=== PATIENT | male | born 1960 | race Caucasian/White ===

== ENCOUNTER 2017-04-03 10:20 | Observation (INO) | payer OTHER ==
--- NOTE | 2017-04-03 11:40 | ED ---
General Adult HPI - General Source: patient Mode of arrival: EMS Limitations: no limitations <Andreea Sahni - Last Filed: 04/03/17 13:47> <Riccardo Severino - Last Filed: 04/03/17 14:57> - General Chief complaint: GI Bleed Stated complaint: Rectal Bleeding Time Seen by Provider: 04/03/17 11:03 - History of Present Illness Initial comments: 56-year-old male patient with past medical history significant for diabetes, CVA with right-sided deficits, and COPD presents to emergency department today for a 10 day history of rectal pain and bright red rectal bleeding. Patient states that he would occasionally have bleeding even without bowel movements. Patient is concerned that he has a hemorrhoid. Patient states that occasionally the blood would fill the entire toilet bowl. Patient states the pain feels like it is on the inside up near his scrotum. Patient states that occasionally he would have drainage of clear fluid from the rectum that would soak his pants. Patient reports having hard bowel movements once every 4 days. He does use opiates chronically. Patient denies any recent fever, chills, shortness breath, chest pain, abdominal pain, nausea/vomiting/diarrhea, back pain, new numbness, tingling, hematuria, headache, visual changes, or any other complaints. Patient denies any family history of cancers. States he does currently smoke and has a history of alcohol abuse currently in remission for 9 years. (Andreea Sahni) - Related Data Home Medications Medication Instructions Recorded Confirmed Aspirin 81 mg PO HS 04/03/17 04/03/17 Furosemide [Lasix] 40 mg PO DAILY 04/03/17 04/03/17 Pregabalin [Lyrica] 150 mg PO BID 04/03/17 04/03/17 Sertraline HCl [Zoloft] 100 mg PO HS 04/03/17 04/03/17 Simvastatin [Zocor] 40 mg PO HS 04/03/17 04/03/17 fentaNYL 100MCG/HR PATCH 1 patch TRANSDERM Q48H 04/03/17 04/03/17 [Duragesic 100MCG/HR] metFORMIN HCL [Glucophage] 500 mg PO BID 04/03/17 04/03/17 Allergies Allergy/AdvReac Type Severity Reaction Status Date / Time No Known Allergies Allergy Unverified 04/03/17 10:41 Review of Systems ROS Other: All systems not noted in ROS Statement are negative. <Bharat Sahniakdi Giraldo - Last Filed: 04/03/17 13:47> ROS Other: All systems not noted in ROS Statement are negative. <Riccardo Severino - Last Filed: 04/03/17 14:57> ROS Statement: Those systems with pertinent positive or pertinent negative responses have been documented in the HPI. Past Medical History Past Medical History: COPD, CVA/TIA, Diabetes Mellitus, Hyperlipidemia, Hypertension History of Any Multi-Drug Resistant Organisms: None Reported Past Surgical History: No Surgical Hx Reported Past Psychological History: No Psychological Hx Reported Smoking Status: Current every day smoker Past Alcohol Use History: None Reported Past Drug Use History: None Reported <FaviolaBharat odellina Enzo - Last Filed: 04/03/17 13:47> General Exam Limitations: no limitations General appearance: alert, in no apparent distress, obese Eye exam: Present: normal appearance, PERRL, EOMI. Absent: scleral icterus, conjunctival injection, periorbital swelling ENT exam: Present: normal exam, normal oropharynx, mucous membranes moist Neck exam: Present: normal inspection. Absent: tenderness, meningismus, lymphadenopathy Respiratory exam: Present: rhonchi. Absent: normal lung sounds bilaterally ( Throughout), respiratory distress, wheezes, rales, stridor Cardiovascular Exam: Present: regular rate, normal rhythm, normal heart sounds. Absent: systolic murmur, diastolic murmur, rubs, gallop, clicks GI/Abdominal exam: Present: soft, normal bowel sounds. Absent: distended, tenderness, guarding, rebound, rigid Rectal exam: Present: normal inspection, normal rectal tone, heme (-) stool, tenderness (Tenderness perianally, rectal tenderness). Absent: hemorrhoids, mass Extremities exam: Present: normal capillary refill, other (Bilateral lower legs exhibit brownish skin discoloration, thickening, and changes due to venous insufficiency.). Absent: normal inspection, full ROM (Patient has right-sided paralysis from previous stroke), tenderness, pedal edema, joint swelling, calf tenderness Back exam: Present: normal inspection Neurological exam: Present: alert, oriented X3, CN II-XII intact, other ( Patient reports some memory impairment.) Psychiatric exam: Present: normal affect, normal mood Skin exam: Present: warm, dry, intact, normal color. Absent: rash <Andreea Sahni - Last Filed: 04/03/17 13:47> General appearance: alert, in no apparent distress Head exam: Present: atraumatic, normocephalic, normal inspection Eye exam: Present: normal appearance, PERRL, EOMI. Absent: scleral icterus, conjunctival injection, periorbital swelling ENT exam: Present: normal exam, mucous membranes moist Neck exam: Present: normal inspection. Absent: tenderness, meningismus, lymphadenopathy Respiratory exam: Present: normal lung sounds bilaterally. Absent: respiratory distress, wheezes, rales, rhonchi, stridor Cardiovascular Exam: Present: regular rate, normal rhythm, normal heart sounds. Absent: systolic murmur, diastolic murmur, rubs, gallop, clicks GI/Abdominal exam: Present: soft, normal bowel sounds. Absent: distended, tenderness, guarding, rebound, rigid Extremities exam: Present: normal inspection, full ROM, normal capillary refill. Absent: tenderness, pedal edema, joint swelling, calf tenderness Back exam: Present: normal inspection Neurological exam: Present: alert, oriented X3, CN II-XII intact Psychiatric exam: Present: normal affect, normal mood Skin exam: Present: warm, dry, intact, normal color. Absent: rash <Riccardo Severino - Last Filed: 04/03/17 14:57> Course <Andreea Sahni - Last Filed: 04/03/17 13:47> <Riccardo Severino - Last Filed: 04/03/17 14:57> Vital Signs 04/03/17 04/03/17 04/03/17 10:28 12:09 13:49 Temperature 97.0 F L 97.7 F Pulse Rate 73 70 71 Respiratory 18 20 20 Rate Blood Pressure 138/61 121/70 121/68 O2 Sat by Pulse 95 93 L 94 L Oximetry - Reevaluation(s) Reevaluation #1: 04/03/17 14:57 Patient be admitted for GI evaluation regarding possibility of UC versus Crohn' s (Riccardo Severino) Medical Decision Making - Lab Data Result diagrams: 04/03/17 11:48 04/03/17 11:48 - Radiology Data Radiology results: report reviewed, image reviewed <Andreea Sahni - Last Filed: 04/03/17 13:47> - Lab Data Result diagrams: 04/03/17 11:48 04/03/17 11:48 <Riccardo Severino - Last Filed: 04/03/17 14:57> - Medical Decision Making Patient presented for complaints of rectal bleeding on and off for the last 10 days. Physical exam did reveal perianal and rectal tenderness. CT of the abdomen and pelvis was performed and did show some rectal wall thickening as well as some presacral edema. Stool was negative for occult blood. Patient will be admitted to the hospital for evaluation by gastroenterology. (Andreea Sahni) - Lab Data Lab Results 04/03/17 04/03/17 04/03/17 Range/Units 11:48 11:48 11:48 WBC 7.5 (3.8-10.6) k/uL RBC 5.35 (4.30-5.90) m/uL Hgb 15.0 (13.0-17.5) gm/dL Hct 47.1 (39.0-53.0) % MCV 88.0 (80.0-100.0) fL MCH 28.1 (25.0-35.0) pg MCHC 31.9 (31.0-37.0) g/dL RDW 17.0 H (11.5-15.5) % Plt Count 192 (150-450) k/uL Neutrophils % 78 % Lymphocytes % 12 % Monocytes % 5 % Eosinophils % 2 % Basophils % 1 % Neutrophils # 5.9 (1.3-7.7) k/uL Lymphocytes # 0.9 L (1.0-4.8) k/uL Monocytes # 0.4 (0-1.0) k/uL Eosinophils # 0.1 (0-0.7) k/uL Basophils # 0.1 (0-0.2) k/uL Anisocytosis Slight Sodium 141 (137-145) mmol/L Potassium 4.8 (3.5-5.1) mmol/L Chloride 105 (98-107) mmol/L Carbon Dioxide 31 H (22-30) mmol/L Anion Gap 5 mmol/L BUN 22 H (9-20) mg/dL Creatinine 0.82 (0.66-1.25) mg/dL Est GFR (MDRD) Af Amer >60 (>60 ml/min/1.73 sqM) Est GFR (MDRD) Non-Af >60 (>60 ml/min/1.73 sqM) Glucose 95 (74-99) mg/dL Plasma Lactic Acid Hebert 0.8 (0.7-2.0) mmol/L Calcium 8.5 (8.4-10.2) mg/dL Total Bilirubin 0.6 (0.2-1.3) mg/dL AST 19 (17-59) U/L ALT 34 (21-72) U/L Alkaline Phosphatase 71 (38-126) U/L Total Protein 6.9 (6.3-8.2) g/dL Albumin 3.6 (3.5-5.0) g/dL Amylase 81 (30-110) U/L Lipase 416 H (23-300) U/L Urine Color Urine Appearance (Clear) Urine pH (5.0-8.0) Ur Specific Dighton (1.001-1.035) Urine Protein (Negative) Urine Glucose (UA) (Negative) Urine Ketones (Negative) Urine Blood (Negative) Urine Nitrite (Negative) Urine Bilirubin (Negative) Urine Urobilinogen (<2.0) mg/dL Ur Leukocyte Esterase (Negative) Urine RBC (0-5) /hpf Urine WBC (0-5) /hpf Amorphous Sediment (None) /hpf Urine Mucus (None) /hpf Stool Occult Blood (Negative) 04/03/17 04/03/17 Range/Units 11:48 12:15 WBC (3.8-10.6) k/uL RBC (4.30-5.90) m/uL Hgb (13.0-17.5) gm/dL Hct (39.0-53.0) % MCV (80.0-100.0) fL MCH (25.0-35.0) pg MCHC (31.0-37.0) g/dL RDW (11.5-15.5) % Plt Count (150-450) k/uL Neutrophils % % Lymphocytes % % Monocytes % % Eosinophils % % Basophils % % Neutrophils # (1.3-7.7) k/uL Lymphocytes # (1.0-4.8) k/uL Monocytes # (0-1.0) k/uL Eosinophils # (0-0.7) k/uL Basophils # (0-0.2) k/uL Anisocytosis Sodium (137-145) mmol/L Potassium (3.5-5.1) mmol/L Chloride (98-107) mmol/L Carbon Dioxide (22-30) mmol/L Anion Gap mmol/L BUN (9-20) mg/dL Creatinine (0.66-1.25) mg/dL Est GFR (MDRD) Af Amer (>60 ml/min/1.73 sqM) Est GFR (MDRD) Non-Af (>60 ml/min/1.73 sqM) Glucose (74-99) mg/dL Plasma Lactic Acid Hebert (0.7-2.0) mmol/L Calcium (8.4-10.2) mg/dL Total Bilirubin (0.2-1.3) mg/dL AST (17-59) U/L ALT (21-72) U/L Alkaline Phosphatase (38-126) U/L Total Protein (6.3-8.2) g/dL Albumin (3.5-5.0) g/dL Amylase (30-110) U/L Lipase (23-300) U/L Urine Color Yellow Urine Appearance Clear (Clear) Urine pH 8.0 (5.0-8.0) Ur Specific Dighton 1.015 (1.001-1.035) Urine Protein Trace H (Negative) Urine Glucose (UA) Negative (Negative) Urine Ketones Negative (Negative) Urine Blood Moderate H (Negative) Urine Nitrite Negative (Negative) Urine Bilirubin Negative (Negative) Urine Urobilinogen <2.0 (<2.0) mg/dL Ur Leukocyte Esterase Negative (Negative) Urine RBC 71 H (0-5) /hpf Urine WBC 1 (0-5) /hpf Amorphous Sediment Rare H (None) /hpf Urine Mucus Rare H (None) /hpf Stool Occult Blood Negative (Negative) - Radiology Data CT of the abdomen and pelvis was obtained impression by Dr. Jenkins shows mild wall thickening involving the rectum and rectosigmoid junction which may be partially related to incomplete distention correlate clinically. There is also evidence of presacral soft tissue density which could be related to mild inflammatory condition. Neoplastic process felt much less likely but not excluded. Numerous renal lesions majority which are too small to characterize. Largest measures Hounsfield units compatible with simple cyst. Cholelithiasis. Nonobstructing lower pole 5 mm left renal calculus. Mild splenomegaly. (Andreea Sahni) Disposition Decision to Admit Reason: Admit from EC Decision Date: 04/03/17 Decision Time: 13:42 <Andreea Sahni - Last Filed: 04/03/17 13:47> <Riccardo Severino - Last Filed: 04/03/17 14:57> Clinical Impression: Rectal pain, GI bleed Disposition: ADMITTED IP TO THIS [facility] Condition: Fair
[2017-04-03] MEDS: RX INFO: IV CONTRAST WAS GIVEN 1 EACH MISC MISCELLANE PRN (11:45)
[2017-04-03 11:56] LABS: Anisocytosis Slight; Basophils # (A) 0.1 k/uL (0-0.2); Basophils % (A) 1 %; CH 28.5; CHCM 32.5; Eosinophils # (A) 0.1 k/uL (0-0.7); Eosinophils % (A) 2 %; HCT 47.1 % (39.0-53.0); HDW 2.83; Luc # (Auto) 0.21; Luc % (Auto) 3; Lymphocytes # (A) 0.9 k/uL (1.0-4.8); Lymphocytes % (A) 12 %; MCH 28.1 pg (25.0-35.0); MCHC 31.9 g/dL (31.0-37.0); Mean Platelet Volume 7.4; Monocytes # (A) 0.4 k/uL (0-1.0); Monocytes % (A) 5 %; Neutrophils # (A) 5.9 k/uL (1.3-7.7); Neutrophils % (A) 78 %; RBC 5.35 m/uL (4.30-5.90); WBC 7.5 k/uL (3.8-10.6); WBC (Perox) 7.24
[2017-04-03 12:06] LABS: ALT 34 U/L (21-72); AST 19 U/L (17-59); Alkaline Phosphatase 71 U/L (38-126); Amylase 81 U/L (30-110); Anion Gap 5 mmol/L; Blood Urea Nitrogen 22 mg/dL (9-20); Calcium 8.5 mg/dL (8.4-10.2); Carbon Dioxide 31 mmol/L (22-30); Chloride 105 mmol/L (98-107); Glucose 95 mg/dL (74-99); Non-African American GFR(MDRD) >60 (>60 ml/min/1.73 sqM); Potassium 4.8 mmol/L (3.5-5.1); Sodium 141 mmol/L (137-145); Total Bilirubin 0.6 mg/dL (0.2-1.3); Total Protein 6.9 g/dL (6.3-8.2)
[2017-04-03 12:29] LABS: Amorphous Sediment,Urine Rare /hpf; Appearance,Urine Clear (Clear); Bilirubin,Urine Negative (Negative); Glucose,Urine (UA) Negative (Negative); Ketones,Urine Negative (Negative); Leukocyte Esterase,Urine Negative (Negative); Mucus,Urine Rare /hpf; Nitrite,Urine Negative (Negative); Particle Count 983; Protein,Urine Trace (Negative); RBC,Urine 71 /hpf (0-5); Specific Gravity,Urine 1.015 (1.001-1.035); UA Billing (MACRO vs. MICRO) MICRO; Urobilinogen,Urine <2.0 mg/dL (<2.0); WBC,Urine 1 /hpf (0-5)
--- NOTE | 2017-04-03 13:02 | CT ---
EXAMINATION TYPE: CT abdomen pelvis w con DATE OF EXAM: 04/03/2017 COMPARISON: NONE HISTORY: Patient complains or rectal bleeding. CT DLP: 2615.1 mGycm Automated exposure control for dose reduction was used. CONTRAST: CT scan of the abdomen pelvis is performed with IV Contrast, patient injected with 100 mL of Omnipaqu e 300. FINDINGS- LUNG BASES- No significant abnormality is appreciated. LIVER/GB-tiny hypodensity within the liver is too small to characterize. There are multiple gallstone s. PANCREAS- No gross abnormality is seen. SPLEEN-the spleen is homogeneous but measures 17 cm correlate for mild splenomegaly. ADRENALS- No gr oss abnormality is seen. KIDNEYS/BLADDER- no hydronephrosis . There are numerous hypodensities some of which are too small to characterize bilaterally. The largest measures approximately 2.5 cm and measures 10 Hounsfield units compatible with a simple cyst. There is a lower pole renal calculus on the left measuring approximate ly 5 mm.. BOWEL- no bowel dilatation. Normal appendix. Occasional diverticula with no CT evidence of divertic ulitis. Rectal wall slightly thickened which may be related to decompression. Correlate clinically. LYMPH NODES- No greater than 1cm abdominal or pelvic lymph nodes are appreciated. OSSEOUS STRUCTURES-hypertrophic and degenerative change of the spine. Arthropathy of the hips. OTHER- aorta of normal caliber with atherosclerotic changes. IVC filter noted. Nonspecific presacral edema noted. IMPRESSION- 1. Mild wall thickening involving the rectum and rectosigmoid junction which may be partially related to incomplete distention correlate clinically. There also is evidence of presacral soft tissue densi ty which could be related to mild inflammatory condition. Neoplastic process felt much less likely bu t not excluded. 2. Numerous renal lesions majority which are too small to characterize. Largest measures Hounsfield u nits compatible with simple cyst. 3. Cholelithiasis. 4. nonobstructing lower pole 5 mm left renal calculus. 5. mild splenomegaly.
[2017-04-03] MEDS ORDERED: NALOXONE 0.4 MG/ML 1 ML VIAL IV PRN (13:38)
[2017-04-03 16:40] LABS: Glucose,Whole Blood 87 mg/dL (75-99)
[2017-04-03] MEDS: metFORMIN 500 MG TAB PO SCH (18:30)
[2017-04-03 20:04] LABS: Glucose,Whole Blood 122 mg/dL (75-99)
[2017-04-03] MEDS: SERTRALINE 100 MG TAB PO SCH (20:36)
[2017-04-03] MEDS: ATORVASTATIN 20 MG TAB PO SCH (20:36)
[2017-04-03] MEDS: PREGABALIN 75 MG CAP PO SCH (20:37)
--- NOTE | 2017-04-04 01:10 | P.CONS ---
History of Present Illness - Reason for Consult Consult date: 04/03/[address] bleeding and abnormal CT - History of Present Illness The patient is a 56-year-old male patient with past medical history of diabetes mellitus, CVA 9 years ago with right-sided paralysis and COPD presented to the emergency department with a 10 day history of rectal pain and bright red rectal bleeding. Patient states that he would occasionally have bleeding even without bowel movements. Patient is concerned that he has a hemorrhoid. Patient states that occasionally the blood would fill the entire toilet bowl. Patient states the pain feels like it is on the inside up near his scrotum. Patient states that occasionally he would have drainage of clear fluid from the rectum that would soak his pants. Patient reports having hard bowel movements once every 4 days. He does use opiates chronically. Patient denies any recent fever , chills, shortness breath, chest pain, abdominal pain, nausea/vomiting/diarrhea , back pain, new numbness, tingling, hematuria, headache, visual changes, or any other complaints. Patient denies any family history of cancers. States he does currently smoke and has a history of alcohol abuse currently in remission for [address] of the abdomen and pelvis showed mild thickening in the wall of the rectum and sigmoid. Review of Systems 14 point review of systems is otherwise negative except as per present illness above. Past Medical History Past Medical History: Heart Failure, COPD, CVA/TIA, Diabetes Mellitus, Hyperlipidemia, Hypertension, Memory Impairment Additional Past Medical History / Comment(s): 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 History of Any Multi-Drug Resistant Organisms: None Reported Past Surgical History: No Surgical Hx Reported Additional Past Surgical History / Comment(s): colonoscopy/benign polypectomy, [facility], failed casandra filter. Past Anesthesia/Blood Transfusion Reactions: No Reported Reaction Smoking Status: Current every day smoker - Past Family History Mother Family Medical History: COPD, Hyperlipidemia, Hypertension Additional Family Medical History / Comment(s): Mother has heart disease. She is 78yrs old. Father Family Medical History: Unable to Obtain Additional Family Medical History / Comment(s): Father at the age of 65 yrs. Pt cannot recall father's medical hx. Medications and Allergies Home Medications Medication Instructions Recorded Confirmed Type Aspirin 81 mg PO HS 04/03/17 04/03/17 History Furosemide [Lasix] 40 mg PO DAILY 04/03/17 04/03/17 History Pregabalin [Lyrica] 150 mg PO BID 04/03/17 04/03/17 History Sertraline HCl [Zoloft] 100 mg PO HS 04/03/17 04/03/17 History Simvastatin [Zocor] 40 mg PO HS 04/03/17 04/03/17 History fentaNYL 100MCG/HR PATCH 1 patch TRANSDERM Q48H 04/03/17 04/03/17 History [Duragesic 100MCG/HR] metFORMIN HCL [Glucophage] 500 mg PO BID 04/03/17 04/03/17 History Allergies Allergy/AdvReac Type Severity Reaction Status Date / Time No Known Allergies Allergy Unverified 04/03/17 10:41 Physical Exam Vitals: Vital Signs Temp Pulse Pulse Resp BP BP Pulse Ox 04/03/17 15:53 97.6 F 86 16 112/59 97 04/03/17 13:49 71 20 121/68 94 L 04/03/17 12:09 97.7 F 70 20 121/70 93 L 04/03/17 10:28 97.0 F L 73 18 138/61 95 Intake and Output 04/03/17 04/03/17 04/03/17 06:59 14:59 22:59 Other: Voiding Method Urinal Weight 145.15 kg Patient Weight 04/04/17 06:59 Weight 145.15 kg General appearance: The patient is alert, oriented, in no acute distress. HET: Head is normocephalic and atraumatic. Pupils are equal and reactive. Oropharynx is clear without lesions. Neck: Supple without lymphadenopathy. Trachea midline. Heart: S1 S2. Regular rate and rhythm. Lungs: No crackles or wheezes are heard. Abdomen: Soft, nontender, nondistended with bowel sounds. No peritoneal signs. No palpable organomegaly or masses. Extremities: Stasis changes and ecchymosis in lower extremities. No cyanosis, rash, ulceration, clubbing, or edema. Radial and pedal pulses are 2/4 bilaterally. Neurological: Right sided motor deficit related to his CVA. Results CBC & Chem 7: 04/03/17 11:48 04/03/17 11:48 Labs: Abnormal Lab Results - Last 24 Hours (Table) 04/03/17 04/03/17 04/03/17 Range/Units 11:48 11:48 12:15 RDW 17.0 H (11.5-15.5) % Lymphocytes # 0.9 L (1.0-4.8) k/uL Carbon Dioxide 31 H (22-30) mmol/L BUN 22 H (9-20) mg/dL POC Glucose (mg/dL) (75-99) mg/dL Lipase 416 H (23-300) U/L Urine Protein Trace H (Negative) Urine Blood Moderate H (Negative) Urine RBC 71 H (0-5) /hpf Amorphous Sediment Rare H (None) /hpf Urine Mucus Rare H (None) /hpf 04/03/17 Range/Units 20:03 RDW (11.5-15.5) % Lymphocytes # (1.0-4.8) k/uL Carbon Dioxide (22-30) mmol/L BUN (9-20) mg/dL POC Glucose (mg/dL) 122 H (75-99) mg/dL Lipase (23-300) U/L Urine Protein (Negative) Urine Blood (Negative) Urine RBC (0-5) /hpf Amorphous Sediment (None) /hpf Urine Mucus (None) /hpf Assessment and Plan Plan: 56-year-old male with rectal bleeding and abnormal CT showing thickened wall in the sigmoid and rectum. With his history of constipation and narcotic use the possibility that we are dealing with ischemic or self-limited colitis to be kept in mind. Local perianal pathology including fissures and hemorrhoids will be considered as well. At his age, consideration can be made for colonoscopy. I will discuss with you and follow the with interest.
[2017-04-04 07:49] LABS: Glucose,Whole Blood 94 mg/dL (75-99)
[2017-04-04] MEDS: FUROSEMIDE 40 MG TAB PO SCH (08:21)
[2017-04-04] MEDS: metFORMIN 500 MG TAB PO SCH ×2 (08:21→17:35)
[2017-04-04] MEDS: PREGABALIN 75 MG CAP PO SCH ×2 (08:24→20:06)
--- NOTE | 2017-04-04 09:55 | P.PN ---
Progress Note - Text Please see full report. Patient denies any recent blood in stools. He was seen by GI. Patient wants regular diet and discharge home.
--- NOTE | 2017-04-04 10:23 | P.PN ---
Subjective Principal diagnosis: Rectal bleeding 56-year-old gentleman with a history of CVA right-sided paralysis presents with rectal bleeding with underlying history of constipation and narcotic usage. Possible ischemic or soft limited colitis. Local. No pathology considered as well. No history of colonoscopy. Presently denies rectal bleeding. Requesting diet advancement. Denies abdominal pain. Objective - Vital Signs Vital signs: Vital Signs Temp 97.8 F 04/04/17 07:00 Pulse 75 04/04/17 08:00 Resp 18 04/04/17 07:00 BP 116/61 04/04/17 07:00 Pulse Ox 93 L 04/04/17 07:00 Intake & Output 04/03/17 04/04/17 04/04/17 18:59 06:59 18:59 Intake Total 590 Output Total 600 Balance -10 Weight 145.15 kg Intake: Oral 590 Output: Urine 600 Other: Voiding Method Urinal Urinal Urinal # Voids 2 - Exam General appearance: The patient is alert, oriented, in no acute distress. HET: Head is normocephalic and atraumatic. Pupils are equal and reactive. Oropharynx is clear without lesions. Neck: Supple without lymphadenopathy. Trachea midline. Heart: S1 S2. Regular rate and rhythm. Lungs: No crackles or wheezes are heard. Abdomen: Soft, nontender, nondistended with bowel sounds. No peritoneal signs. No palpable organomegaly or masses. Extremities: Normal skin color and turgor. No cyanosis, rash, ulceration, clubbing, or edema. Radial and pedal pulses are 2/4 bilaterally. Neurological: Right-sided paralysis. No focal deficits. Strength and sensation are grossly intact. - Labs CBC & Chem 7: 04/03/17 11:48 04/03/17 11:48 Labs: Abnormal Lab Results - Last 24 Hours (Table) 04/03/17 04/03/17 04/03/17 Range/Units 11:48 11:48 12:15 RDW 17.0 H (11.5-15.5) % Lymphocytes # 0.9 L (1.0-4.8) k/uL Carbon Dioxide 31 H (22-30) mmol/L BUN 22 H (9-20) mg/dL POC Glucose (mg/dL) (75-99) mg/dL Lipase 416 H (23-300) U/L Urine Protein Trace H (Negative) Urine Blood Moderate H (Negative) Urine RBC 71 H (0-5) /hpf Amorphous Sediment Rare H (None) /hpf Urine Mucus Rare H (None) /hpf 04/03/17 Range/Units 20:03 RDW (11.5-15.5) % Lymphocytes # (1.0-4.8) k/uL Carbon Dioxide (22-30) mmol/L BUN (9-20) mg/dL POC Glucose (mg/dL) 122 H (75-99) mg/dL Lipase (23-300) U/L Urine Protein (Negative) Urine Blood (Negative) Urine RBC (0-5) /hpf Amorphous Sediment (None) /hpf Urine Mucus (None) /hpf Assessment and Plan Plan: Impression: 1. Rectal bleeding possible self limiting colitis possible ischemic possible perianal pathology such as fissures hemorrhoids exacerbated by constipation and chronic narcotic usage. Recommendations: 1. Colonoscopy advised, patient has no history colonoscopy however patient declines colonoscopy. Patient is requesting diet advancement and discharge. Follow up in GI office after discharge as needed. We'll sign off be available for additional questions or concerns. Assessment and plan a care discussed with Dr. Gurrola
[2017-04-04 11:53] LABS: Glucose,Whole Blood 98 mg/dL (75-99)
--- NOTE | 2017-04-04 13:30 | P.HPIM ---
History of Present Illness H&P Date: 04/03/17 Chief Complaint: Rectal pain History of presenting complaint: This is a 56-year-old patient being followed by Dr. Packer who complains of intermittent blood in the stool normally presents with bowel movements. Patient 's occasionally constipated. Has some lower abdominal pain. Denies any nausea vomiting. Denies any fever. Chronic stable medical conditions include stroke with some right-sided weakness , diabetes, hyperlipidemia, hypertension, chronic right-sided pain, memory impairment. Patient also is long-standing smoker, patient short of breath and wheezing, some sputum production.. Denies fever. Appetite had gone down. GEN.: Tired EYES: None HEENT: None NECK: None RESPIRATORY: As above] CARDIOVASCULAR: None GASTROINTESTINAL: As above GENITOURINARY: None MUSCULOSKELETAL: None LYMPHATICS: None HEMATOLOGICAL: None PSYCHIATRY: None NEUROLOGICAL: As above Past medical history: COPD, stroke with right-sided weakness, diabetes, hyperlipidemia, hypertension, chronic right-sided pain, memory impairment Past medical history: Colonoscopy with polypectomy, failed [place] filter Social history: Resident at [employer]. Wheelchair bound. His sister-in- law is her caregiver. Patient does smoke a few cigarettes a day. Was drinking heavy alcohol up to 9 years ago. Home medications are reviewed in the computer ALLERGIES: None VITAL SIGNS: 97, 73, 18, 138/61, 95% room air GENERAL: Well-built, BMI 47.3, laying in bed, tired appearing short of breath. EYES: Pupils equal. Conjunctiva normal. HEENT: External appearance of nose and ears normal, oral cavity grossly normal. NECK: JVD not raised; masses not palpable. HEART: First and second heart sounds are normal; mild edema. LUNGS: Respiratory rate increased, diminished breath sounds prolonged expiration and wheezing mild crackles. ABDOMEN: Soft, nontender, liver spleen not palpable, no masses palpable. LYMPHATICS: No lymph nodes palpable in the axilla and neck. PSYCH: Alert and oriented x3; mood and affect normal. NEUROLOGICAL: Cranial nerves grossly intact; no facial asymmetry, power decreased on the right side 3 / 5. DERMATOLOGICAL: Stasis dermatitis on both lower extremity more so on the right leg Investigations: White count 7.5, hemoglobin 15, pressure 4.8, BMI 22, creatinine 0.[address] abdomen-shows mild wall thickening involving the rectum and rectosigmoid junction, gallstones, nonobstructing 5 mm left renal calculus Assessment: -Acute lower GI bleed could be from mild ischemic colitis in the distal colon -Acute COPD exacerbation and a current smoker Chronic nicotine dependence patient is smoker -Right-sided weakness from a prior stroke -Memory impairment from prior stroke -Morbid obesity BMI 47.3 -Essential hypertension -Hyperlipidemia -Diabetes mellitus type 2 on oral hypoglycemic Plan: GI and general surgery consulted. Patient counseled against smoking. Will be given bronchodilator and steroids. Care was discussed with the patient. Past Medical History Past Medical History: Heart Failure, COPD, CVA/TIA, Diabetes Mellitus, Hyperlipidemia, Hypertension, Memory Impairment Additional Past Medical History / Comment(s): 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 History of Any Multi-Drug Resistant Organisms: None Reported Past Surgical History: No Surgical Hx Reported Additional Past Surgical History / Comment(s): colonoscopy/benign polypectomy, CONNER, failed [place] filter. Past Anesthesia/Blood Transfusion Reactions: No Reported Reaction Smoking Status: Current every day smoker - Past Family History Mother Family Medical History: COPD, Hyperlipidemia, Hypertension Additional Family Medical History / Comment(s): Mother has heart disease. She is 78yrs old. Father Family Medical History: Unable to Obtain Additional Family Medical History / Comment(s): Father at the age of 65 yrs. Pt cannot recall father's medical hx. Medications and Allergies Home Medications Medication Instructions Recorded Confirmed Type Aspirin 81 mg PO HS 04/03/17 04/03/17 History Furosemide [Lasix] 40 mg PO DAILY 04/03/17 04/03/17 History Pregabalin [Lyrica] 150 mg PO BID 04/03/17 04/03/17 History Sertraline HCl [Zoloft] 100 mg PO HS 04/03/17 04/03/17 History Simvastatin [Zocor] 40 mg PO HS 04/03/17 04/03/17 History fentaNYL 100MCG/HR PATCH 1 patch TRANSDERM Q48H 04/03/17 04/03/17 History [Duragesic 100MCG/HR] metFORMIN HCL [Glucophage] 500 mg PO BID 04/03/17 04/03/17 History Allergies Allergy/AdvReac Type Severity Reaction Status Date / Time No Known Allergies Allergy Unverified 04/03/17 10:41 Results CBC & Chem 7: 04/03/17 11:48 04/03/17 11:48
[2017-04-04 13:31] VITALS: BMI 47.2
[2017-04-04] MEDS: IPRATROPIUM-ALBUTEROL 3 ML NEB INHALATION SCH ×2 (13:49→20:48)
[2017-04-04 13:53] VITALS: RESP 16
--- NOTE | 2017-04-04 13:54 | P.GSCN ---
<Indira Crenshaw M - Last Filed: 04/04/17 13:54> History of Present Illness Consult date: 04/04/17 Reason for Consult: Rectal bleeding History of present illness: 56-year-old male being seen at the request of the attending for surgical eval in a patient who presented with an episode of rectal bleeding. Patient has a history of having a prior CVA resulting in right side deficit. Patient presented to the emergency room reportedly had not been experiencing history of having rectal pain with bright red rectal bleeding. Patient stated sometimes he has bleeding without a bowel movement. Patient thought he had a hemorrhoid. Patient states he has not had a colonoscopy in the past. Patient states he normally would have a bowel movement once every 4 days. He uses opiates and is chronically constipated. According to the patient he continues to smoke cigarettes. 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 Patient did have a CAT scan of the abdomen pelvis it did show mild thickening of the sigmoid and rectum. Patient does give a history of having a prior fistula "1985" states he was treated with medicine no surgery. Patient as mentioned states he's never had a colonoscopy and is currently refusing to proceed with a colonoscopy . Patient states he has limited mobility uses a motorized scooter is asking to have his diet advanced and he plans on going home today. Did note the patient has been seen by gastroenterology service they recommend a colonoscopy however the patient declines hemoglobin on April 03 was 15. According to the patient there has been no further episodes of rectal bleeding patient is sitting up in the room talkative Review of Systems Essentially unremarkable except as mentioned of present illness Past Medical History Past Medical History: Heart Failure, COPD, CVA/TIA, Diabetes Mellitus, Hyperlipidemia, Hypertension, Memory Impairment Additional Past Medical History / Comment(s): 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 History of Any Multi-Drug Resistant Organisms: None Reported Past Surgical History: No Surgical Hx Reported Additional Past Surgical History / Comment(s): colonoscopy/benign polypectomy, CONNER, failed casandra filter. Past Anesthesia/Blood Transfusion Reactions: No Reported Reaction Smoking Status: Current every day smoker - Past Family History Mother Family Medical History: COPD, Hyperlipidemia, Hypertension Additional Family Medical History / Comment(s): Mother has heart disease. She is 78yrs old. Father Family Medical History: Unable to Obtain Additional Family Medical History / Comment(s): Father at the age of 65 yrs. Pt cannot recall father's medical hx. Medications and Allergies Home Medications Medication Instructions Recorded Confirmed Type Aspirin 81 mg PO HS 04/03/17 04/03/17 History Furosemide [Lasix] 40 mg PO DAILY 04/03/17 04/03/17 History Pregabalin [Lyrica] 150 mg PO BID 04/03/17 04/03/17 History Sertraline HCl [Zoloft] 100 mg PO HS 04/03/17 04/03/17 History Simvastatin [Zocor] 40 mg PO HS 04/03/17 04/03/17 History fentaNYL 100MCG/HR PATCH 1 patch TRANSDERM Q48H 04/03/17 04/03/17 History [Duragesic 100MCG/HR] metFORMIN HCL [Glucophage] 500 mg PO BID 04/03/17 04/03/17 History Allergies Allergy/AdvReac Type Severity Reaction Status Date / Time No Known Allergies Allergy Unverified 04/03/17 10:41 Surgical - Exam Vital Signs Temp Pulse Resp BP Pulse Ox 97.0 F L 73 18 138/61 95 04/03/17 10:28 04/03/17 10:28 04/03/17 10:28 04/03/17 10:28 04/03/17 10:28 GENERAL APPEARANCE: 56-year-old male looking older than stated age sitting up in bed talkative patient is alert, oriented, in no acute distress. VITAL SIGNS: Reviewed HEENT: Head is normocephalic and atraumatic. Pupils are equal and reactive. The nares are patent. Oropharynx is clear without lesions. NECK: Supple without lymphadenopathy. Traches midline. HEART: S1, S2. Regular rate and rhythm. No murmur noted denying chest pain LUNGS: No crackles or wheezes are heard. Adequate air movement bilaterally ABDOMEN: Soft, nontender, nondistended with good bowel sounds. No peritoneal signs. No palpable organomegaly or masses. EXTREMITIES: Radial pedal pulses are 2/4 bilaterally. Right side deficit right side weakness chronic venous stasis to the bilateral lower extremities right greater than the left Results - Labs 04/03/17 11:48 04/03/17 11:48 Abnormal Lab Results - Last 24 Hours (Table) 04/03/17 Range/Units 20:03 POC Glucose (mg/dL) 122 H (75-99) mg/dL Assessment and Plan Plan: Impression Present on admission episode of Rectal bleeding possible self limiting colitis possible ischemic possible perianal pathology such as fissures hemorrhoids exacerbated by constipation and chronic narcotic usage. Present on admission acute lower GI bleed suspect self-limiting colitis possible ischemic Chronic nicotine dependency current every day smoker A prior CVA resulting in right side weakness Memory cognitive impairment from the prior CVA Chronic debility limited mobility uses a motorized scooter Morbid obesity BMI 47 COPD exacerbation Chronic opiate use with chronic constipation Plan Patient has been advised for colonoscopy currently patient is declining Diet to be advanced No acute surgical abdomen From a surgical perspective patient could be discharged home could follow-up in the outpatient setting We'll sign off and be available as clinical issues arise The above impression and plan of care have been discussed and directed by signing physician. Indira Crenshaw nurse practitioner acting as scribe for signing physician. <Yadi Gu N - Last Filed: 04/05/17 18:01> Surgical - Exam Vital Signs Temp Pulse Resp BP Pulse Ox 97.0 F L 73 18 138/61 95 04/03/17 10:28 04/03/17 10:28 04/03/17 10:28 04/03/17 10:28 04/03/17 10:28 Results - Labs 04/03/17 11:48 04/03/17 11:48 Abnormal Lab Results - Last 24 Hours (Table) 04/04/17 04/05/17 04/05/17 Range/Units 20:12 07:12 11:37 POC Glucose (mg/dL) 157 H 151 H 165 H (75-99) mg/dL Assessment and Plan Plan: Patient seen and evaluated. At this time, patient denies any request for surgical intervention. Recommend outpatient colonoscopy.
[2017-04-04] MEDS: BUDESONIDE 1 MG/2 ML NEBU INHALATION SCH ×2 (13:56→20:48)
[2017-04-04] MEDS: methylPREDNISolone SOD SUCCI 40 MG/ML 1 ML VIAL IV SCH ×2 (14:28→23:38)
[2017-04-04] MEDS: NICOTINE 14MG/24HR PATCH TRANSDERM SCH (14:28)
--- NOTE | 2017-04-04 15:55 | P.PN ---
<Marbella Keith - Last Filed: 04/04/17 15:32> Progress Note - Text DATE OF SERVICE: 04/04/2017 PRESENTING COMPLAINT: Rectal pain/bleeding INTERVAL HISTORY: 56-year-old male who presented with intermittent blood in the stool, and rectal pain. History significant for occasional constipation. 04/04/2017: Patient is seen in follow-up, no acute overnight events, no blood in the stool, no passage of stool. Patient nothing by mouth for possible colonoscopy, seen by GI, patient refusing colonoscopy at this time. Patient is ambulatory within the room and jolly ways with no assistance. Diet to be advanced as tolerated. Complains of some shortness of breath and wheezing with some sputum production. REVIEW OF SYSTEMS: Done for constitutional ,cardiovascular, GI, pulmonary with relevant findings as above. CURRENT MEDICATIONS DuoNeb, Lipitor, Pulmicort, Duragesic patch, Lasix, Glucophage, Solu-Medrol, nicotine patch, Lyrica, Zoloft. PHYSICAL EXAM VITAL SIGNS: Temperature 97.8, pulse 75, respiratory rate 18, blood pressure 116/61, oxygen saturation 93% on room air. GENERAL APPEARANCE: Lying in bed, not in distress. EYES: Pupils equal. Conjunctiva normal. NECK: JVD not raised. Mass not palpable. RESPIRATORY: Respiratory effort mildly labored. Lungs coarse breath sounds bilaterally. CARDIOVASCULAR: First and second sounds normal. No edema. ABDOMEN: Soft. Liver and spleen not palpable. No tenderness. No mass palpable. PSYCHIATRY: Alert and oriented x3. Mood and affect normal. INTEGUMENT: Right lower extremity Brown from ankle to knee, skin scaly thick, skin to the toes on the right foot scaly, dry. Left lower extremity has a 6 x 6 patch of brown discoloration. INVESTIGATIONS: Accu-Cheks noted ASSESSMENT: -Acute lower GI bleed could be from mild ischemic colitis in the distal colon -Acute COPD exacerbation in a current smoker -Chronic nicotine dependence patient is smoker -Right-sided weakness from a prior stroke -Memory impairment from prior stroke -Morbid obesity BMI 47.3 -Essential hypertension -Hyperlipidemia -Diabetes mellitus type 2 on oral hypoglycemic PLAN: Continue bronchodilators and steroids, patient currently refusing colonoscopy. Plan of care discussed with the patient at the bedside we'll continue to follow closely. Likely to be discharged tomorrow. MANUFACTURING ENGINEERING DIRECTOR statement: Patient was seen and examined by nurse practitioner Marbella Keith and all elements of the case discussed with attending Dr. Brito <Liam Brito - Last Filed: 04/04/17 22:33> Progress Note - Text Date of service 04/04/2017 Attending note: This patient was seen and examined by me today. Discussed with mynurse practitioner Ms. Keith. Patient admitted with COPD exacerbation is a smoker and some mild ischemic colitis. Shortness of breath and wheezing present On examination: Lungs-decreased breath sound expiratory wheezing Assessment and plan: Acute COPD exacerbation-continue IV Solu-Medrol and nebulized bronchodilators. Care was discussed with the patient. Patient anxious to go home. Smoking cessation decreased with the patient-adverse affects onto smoking discussed with the patient/5 minutes spent in smoke cessation counseling. Patient appreciates the counseling
[2017-04-04 17:19] LABS: Glucose,Whole Blood 124 mg/dL (75-99)
[2017-04-04] MEDS: SERTRALINE 100 MG TAB PO SCH (20:06)
[2017-04-04] MEDS: ATORVASTATIN 20 MG TAB PO SCH (20:06)
[2017-04-04 20:25] LABS: Glucose,Whole Blood 157 mg/dL (75-99)
[2017-04-05] MEDS: BUDESONIDE 1 MG/2 ML NEBU INHALATION SCH (07:09)
[2017-04-05] MEDS: IPRATROPIUM-ALBUTEROL 3 ML NEB INHALATION SCH ×2 (07:09→10:59)
[2017-04-05 07:21] LABS: Glucose,Whole Blood 151 mg/dL (75-99)
[2017-04-05 07:40] VITALS: BP 109/60; TEMP 97.4
[2017-04-05] MEDS: FUROSEMIDE 40 MG TAB PO SCH (08:07)
[2017-04-05] MEDS: methylPREDNISolone SOD SUCCI 40 MG/ML 1 ML VIAL IV SCH (08:07)
[2017-04-05] MEDS: NICOTINE 14MG/24HR PATCH TRANSDERM SCH (08:07)
[2017-04-05] MEDS: metFORMIN 500 MG TAB PO SCH (08:07)
[2017-04-05] MEDS: PREGABALIN 75 MG CAP PO SCH (08:09)
[2017-04-05 11:00] VITALS: PULSE 75
[2017-04-05 11:42] LABS: Glucose,Whole Blood 165 mg/dL (75-99)
--- NOTE | 2017-04-05 17:12 | P.DS ---
<Marbella Keith - Last Filed: 04/05/17 17:02> Providers Date of admission: 04/03/17 14:36 Expected date of discharge: 04/05/17 Attending physician: Liam Brito Consults: 04/03/17 22:33 Consult Physician Routine Consulting Provider: Loida Aponte Consult Reason/Comments: rectal pain/bleeding Do you want consulting provider notified?: Yes Primary care physician: [facility] Hospital Course: FINAL DIAGNOSES: -Acute lower GI bleed could be from mild ischemic colitis in the distal colon -Acute COPD exacerbation in a current smoker -Chronic nicotine dependence patient is smoker -Right-sided weakness from a prior stroke -Memory impairment from prior stroke -Morbid obesity BMI 47.3 -Essential hypertension -Hyperlipidemia -Diabetes mellitus type 2 on oral hypoglycemic HOSPTIAL COURSE: 56-year-old male who presented with intermittent blood in the stool, and rectal pain. GI was consulted and recommended colonoscopy patient has refused. Also had some shortness of breath and wheezing with productive cough on admission. IV Solu-Medrol burst with nebulized bronchodilators provided. Patient has had no further bleeding episodes nor any rectal pain, breathing is improved, cough productive with clear sputum. Patient continues to smoke, smoking cessation counseling provided at the bedside by attending physician, resources provided. Patient verbalized understanding and is in agreement with smoking cessation. Patient condition has stabilized and is anxious and is stable to be discharged. CONSULTANTS: Dr. Archana Aponte of GI PHYSICAL EXAM: CARDIOVASCULAR: First and second sounds noted no edema RESPIRATORY: Respiratory effort mildly labored, decreased breath sounds bilaterally with scattered rhonchi, expiratory wheezing. : No rectal pain no blood. Patient was seen and examined by nurse practitioner Marbella Keith in all elements of the case discussed with attending Dr. Brito DISPOSITION: Discharge home Patient Condition at Discharge: Fair Plan - Discharge Summary New Discharge Prescriptions: New Ipratropium-Albuterol Nebulize [Duoneb 0.5 mg-3 mg/3 ml Soln] 3 ml INHALATION TID #90 neb Nicotine 14Mg/24Hr Patch [Habitrol] 1 patch TRANSDERM DAILY #14 patch Continue Pregabalin [Lyrica] 150 mg PO BID fentaNYL 100MCG/HR PATCH [Duragesic 100MCG/HR] 1 patch TRANSDERM Q48H Simvastatin [Zocor] 40 mg PO HS Sertraline HCl [Zoloft] 100 mg PO HS Furosemide [Lasix] 40 mg PO DAILY Aspirin 81 mg PO HS metFORMIN HCL [Glucophage] 500 mg PO BID Discharge Medication List Aspirin 81 mg PO HS 04/03/17 [History] Furosemide [Lasix] 40 mg PO DAILY 04/03/17 [History] Pregabalin [Lyrica] 150 mg PO BID 04/03/17 [History] Sertraline HCl [Zoloft] 100 mg PO HS 04/03/17 [History] Simvastatin [Zocor] 40 mg PO HS 04/03/17 [History] fentaNYL 100MCG/HR PATCH [Duragesic 100MCG/HR] 1 patch TRANSDERM Q48H 04/03/17 [ History] metFORMIN HCL [Glucophage] 500 mg PO BID 04/03/17 [History] Ipratropium-Albuterol Nebulize [Duoneb 0.5 mg-3 mg/3 ml Soln] 3 ml INHALATION TID #90 neb 04/05/17 [Rx] Nicotine 14Mg/24Hr Patch [Habitrol] 1 patch TRANSDERM DAILY #14 patch 04/05/17 [ Rx] Follow up Appointment(s)/Referral(s): Ishan Gurrola MD [STAFF PHYSICIAN] - 04/12/17 2:30 pm (Appointment set up for [facility]) Jhonatan Reza MD [Primary Care Provider] - 3 Days (please call for appointment, office closed at this time) Ambulatory/Diagnostic Orders: Complete Blood Count w/diff [LAB.AMB] Time Frame: 1 Week, Location: Determined By Patient Patient Instructions/Handouts: Nicotine (Absorbed through the skin), Ipratropium/Albuterol (By breathing), Gastrointestinal Bleeding (DC), Rectal Bleeding (DC) Activity/Diet/Wound Care/Special Instructions: script for nebulizer sent to [facility]- [phone] Discharge Disposition: HOME SELF-CARE <Liam Brito - Last Filed: 04/05/17 22:37> Hospital Course: Attending note. Date of service-04/05/2017 This patient was seen and examined by me . I reviewed the note of my nurse practitioner, Ms. Keith. Discussed with her, additional findings as below. Admitted with lower GI bleed intermittent felt to be low-grade colitis. Seen by Dr. Nathan from GI and Dr. Aponte from surgery. Also COPD exacerbation. Improved On examination: Lungs-decreased breath sound decreased wheezing, abdomen soft nontender Investigations: Assessment and plan: Acute COPD exacerbation improved. Patient counseled against smoking. Follow with GI and PCP as outpatient
--- NOTE | 2017-04-05 18:03 | P.PN ---
Subjective Principal diagnosis: Rectal bleed The patient is a 56-year-old gentleman who reportedly had history of rectal bleeding. He denies any anorectal pain at this time. He is tolerating diet. He reports having normal bowel movement. Objective - Vital Signs Vital signs: Vital Signs Temp 97.4 F L 04/05/17 07:00 Pulse 75 04/05/17 11:15 Resp 16 04/05/17 07:00 BP 109/60 04/05/17 07:00 Pulse Ox 94 L 04/05/17 07:00 Intake & Output 04/04/17 04/05/17 04/05/17 18:59 06:59 18:59 Intake Total 680 Output Total 800 Balance -800 680 Weight 145.15 kg Intake: Oral 680 Output: Urine 800 Other: Voiding Method Urinal Urinal Urinal # Voids 1 3 - Exam GENERAL: Well developed and in no acute distress. HEENT: No sclera icterus. Extraocular movements grossly intact. Moist buccal mucosa. Head is atraumatic, normocephalic. Hears conversational speech. No nasal drainage. NECK: Supple without lymphadenopathy. CHEST: Non-labored respirations and equal bilateral excursions. CARDIOVASCULAR: Regular rate and rhythm. Palpable 2+ radial pulses. ABDOMEN: Soft, nontender. Nondistended. MUSCULOSKELETAL: No clubbing, cyanosis. NEUROLOGIC: Flaccid paresis from previous stroke. PSYCH: Appropriate affect. Alert and oriented to person, place and time. SKIN: Good skin turgor. Will perfused. - Labs CBC & Chem 7: 04/03/17 11:48 04/03/17 11:48 Labs: Abnormal Lab Results - Last 24 Hours (Table) 04/04/17 04/05/17 04/05/17 Range/Units 20:12 07:12 11:37 POC Glucose (mg/dL) 157 H 151 H 165 H (75-99) mg/dL Assessment and Plan (1) GI bleed Status: Acute (2) Rectal pain Status: Acute Plan: 1. Patient may be discharged for follow-up as outpatient. 2. Recommend outpatient colonoscopy.
== END 2017-04-05 15:51 | disposition home or self-care (01) ==
LOC: EC 10:20 → INTOOBSV 14:36 → 5MS5E 14:36 → OBSVTOIN 14:36
PROVIDERS: ADMIT Hospitalist; ATTEND Hospitalist
DX: K55.9 Vascular disorder of intestine, unspecified (principal); I69.351 Hemiplegia and hemiparesis following cerebral infarction affecting right dominant side; J44.1 Chronic obstructive pulmonary disease with (acute) exacerbation; K92.1 Melena; E66.01 Morbid (severe) obesity due to excess calories; E11.9 Type 2 diabetes mellitus without complications; T40.605A Adverse effect of unspecified narcotics, initial encounter; K59.03 Drug induced constipation; F17.210 Nicotine dependence, cigarettes, uncomplicated; E78.5 Hyperlipidemia, unspecified; I10 Essential (primary) hypertension; Z79.84 Long term (current) use of oral hypoglycemic drugs; Z79.891 Long term (current) use of opiate analgesic; Z79.82 Long term (current) use of aspirin; Z79.899 Other long term (current) drug therapy; Z99.3 Dependence on wheelchair; Z87.898 Personal history of other specified conditions; G89.29 Other chronic pain; Z68.42 Body mass index [BMI] 45.0-49.9, adult
CPT/HCPCS: 96376 ×2; 96374; 99285; 36415; 94640 ×4; 93005; 80053; 82150; 83605; 83690; 85025; 82272; 81001; 74177; G0378 ×3; S4990 ×2; J2920 ×2; Q9967

== ENCOUNTER 2017-10-23 15:07 | Inpatient (IN) | payer OTHER ==
[2017-10-23] MEDS ORDERED: methylPREDNISolone SOD SUCCI 125 MG/2 ML VIAL IV STA (15:15)
[2017-10-23] MEDS ORDERED: IPRATROPIUM-ALBUTEROL 3 ML NEB INHALATION STA (15:15)
--- NOTE | 2017-10-23 15:22 | ED ---
General Adult HPI - General Stated complaint: Diff Breathing Time Seen by Provider: 10/23/17 15:10 Source: patient, EMS, RN notes reviewed Mode of arrival: EMS Limitations: no limitations - History of Present Illness Initial comments: Patient is a pleasant 57-year-old male presenting to the emergency department complaining of difficulty in breathing. This is a chronic problem for him however is worse over the past week. Patient does have chronic leg edema. Patient has not noticed significant change. Patient has not been coughing much. No chest pain. Patient believes he may have had a fever several days ago. - Related Data Home Medications Medication Instructions Recorded Confirmed Aspirin 81 mg PO HS 04/03/17 10/23/17 Furosemide [Lasix] 40 mg PO DAILY 04/03/17 10/23/17 Pregabalin [Lyrica] 150 mg PO BID 04/03/17 10/23/17 Sertraline HCl [Zoloft] 100 mg PO HS 04/03/17 10/23/17 Simvastatin [Zocor] 40 mg PO HS 04/03/17 10/23/17 fentaNYL 100MCG/HR PATCH 1 patch TRANSDERM Q48H 04/03/17 10/23/17 [Duragesic 100MCG/HR] metFORMIN HCL [Glucophage] 500 mg PO BID 04/03/17 10/23/17 Allergies Allergy/AdvReac Type Severity Reaction Status Date / Time No Known Allergies Allergy Verified 10/23/17 15:39 Review of Systems ROS Statement: Those systems with pertinent positive or pertinent negative responses have been documented in the HPI. ROS Other: All systems not noted in ROS Statement are negative. Constitutional: Denies: fever (Resolved) Eyes: Denies: eye pain ENT: Denies: ear pain Respiratory: Reports: dyspnea. 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 History of Any Multi-Drug Resistant Organisms: None Reported Past Surgical History: No Surgical Hx Reported Additional Past Surgical History / Comment(s): colonoscopy/benign polypectomy, CONNER, failed casandra filter. Past Anesthesia/Blood Transfusion Reactions: No Reported Reaction Past Psychological History: No Psychological Hx Reported Smoking Status: Current every day smoker Past Alcohol Use History: None Reported Past Drug Use History: None Reported - Past Family History Mother Family Medical History: COPD, Hyperlipidemia, Hypertension Additional Family Medical History / Comment(s): Mother has heart disease. She is 78yrs old. Father Family Medical History: Unable to Obtain Additional Family Medical History / Comment(s): Father at the age of 65 yrs. Pt cannot recall father's medical hx. General Exam Limitations: no limitations General appearance: alert, in no apparent distress, obese Head exam: Present: atraumatic Eye exam: Present: normal appearance, PERRL ENT exam: Present: normal oropharynx Neck exam: Present: normal inspection Respiratory exam: Present: wheezes, rales Cardiovascular Exam: Present: regular rate, normal rhythm GI/Abdominal exam: Present: soft. Absent: tenderness Extremities exam: Present: pedal edema (Right greater than left which patient states is chronic). Absent: calf tenderness Neurological exam: Present: alert, other (Right-sided weakness which patient states is chronic) Psychiatric exam: Present: normal affect, normal mood Skin exam: Present: normal color Course Vital Signs 10/23/17 10/23/17 10/23/17 15:12 15:56 16:00 Temperature 97.2 F L Pulse Rate 93 92 88 Respiratory 18 20 Rate Blood Pressure 148/65 145/69 O2 Sat by Pulse 96 96 Oximetry 10/23/17 16:03 Temperature Pulse Rate 91 Respiratory Rate Blood Pressure O2 Sat by Pulse Oximetry EKG Findings - EKG Comments: EKG Findings:: Normal sinus rhythm 88. NJ 156. QRS 100. QT 366. QTc 442. Right axis. Q wave in V1 and V2. No acute ST change. Medical Decision Making - Medical Decision Making Patient reevaluated and updated. Case was discussed in detail with Dr. huizar , who will admit for Dr. Marquez. Blood culture and lactic acid will be added. Patient will be covered with antibiotics for COPD and bronchitis. - Lab Data Result diagrams: 10/23/17 15:36 10/23/17 15:36 Lab Results 10/23/17 10/23/17 10/23/17 Range/Units 15:36 15:36 15:36 WBC 8.0 (3.8-10.6) k/uL RBC 5.09 (4.30-5.90) m/uL Hgb 14.1 (13.0-17.5) gm/dL Hct 43.7 (39.0-53.0) % MCV 85.8 (80.0-100.0) fL MCH 27.6 (25.0-35.0) pg MCHC 32.2 (31.0-37.0) g/dL RDW 15.3 (11.5-15.5) % Plt Count 235 (150-450) k/uL Neutrophils % 79 % Lymphocytes % 10 % Monocytes % 6 % Eosinophils % 2 % Basophils % 0 % Neutrophils # 6.3 (1.3-7.7) k/uL Lymphocytes # 0.8 L (1.0-4.8) k/uL Monocytes # 0.5 (0-1.0) k/uL Eosinophils # 0.2 (0-0.7) k/uL Basophils # 0.0 (0-0.2) k/uL PT (9.0-12.0) sec INR (<1.2) APTT (22.0-30.0) sec Sodium 141 (137-145) mmol/L Potassium 3.5 (3.5-5.1) mmol/L Chloride 100 (98-107) mmol/L Carbon Dioxide 33 H (22-30) mmol/L Anion Gap 8 mmol/L BUN 19 (9-20) mg/dL Creatinine 0.60 L (0.66-1.25) mg/dL Est GFR (CKD-EPI)AfAm >90 (>60 ml/min/1.73 sqM) Est GFR (CKD-EPI)NonAf >90 (>60 ml/min/1.73 sqM) Glucose 74 (74-99) mg/dL Calcium 8.8 (8.4-10.2) mg/dL Total Bilirubin 0.5 (0.2-1.3) mg/dL AST 28 (17-59) U/L ALT 35 (21-72) U/L Alkaline Phosphatase 68 (38-126) U/L Total Creatine Kinase 44 L (55-170) U/L CK-MB (CK-2) 0.5 (0.0-2.4) ng/mL CK-MB (CK-2) Rel Index 1.1 Troponin I <0.012 (0.000-0.034) ng/mL NT-Pro-B Natriuret Pep pg/mL Total Protein 6.7 (6.3-8.2) g/dL Albumin 3.3 L (3.5-5.0) g/dL 10/23/17 10/23/17 Range/Units 15:36 15:36 WBC (3.8-10.6) k/uL RBC (4.30-5.90) m/uL Hgb (13.0-17.5) gm/dL Hct (39.0-53.0) % MCV (80.0-100.0) fL MCH (25.0-35.0) pg MCHC (31.0-37.0) g/dL RDW (11.5-15.5) % Plt Count (150-450) k/uL Neutrophils % % Lymphocytes % % Monocytes % % Eosinophils % % Basophils % % Neutrophils # (1.3-7.7) k/uL Lymphocytes # (1.0-4.8) k/uL Monocytes # (0-1.0) k/uL Eosinophils # (0-0.7) k/uL Basophils # (0-0.2) k/uL PT 10.7 (9.0-12.0) sec INR 1.1 (<1.2) APTT 30.6 H (22.0-30.0) sec Sodium (137-145) mmol/L Potassium (3.5-5.1) mmol/L Chloride (98-107) mmol/L Carbon Dioxide (22-30) mmol/L Anion Gap mmol/L BUN (9-20) mg/dL Creatinine (0.66-1.25) mg/dL Est GFR (CKD-EPI)AfAm (>60 ml/min/1.73 sqM) Est GFR (CKD-EPI)NonAf (>60 ml/min/1.73 sqM) Glucose (74-99) mg/dL Calcium (8.4-10.2) mg/dL Total Bilirubin (0.2-1.3) mg/dL AST (17-59) U/L ALT (21-72) U/L Alkaline Phosphatase (38-126) U/L Total Creatine Kinase (55-170) U/L CK-MB (CK-2) (0.0-2.4) ng/mL CK-MB (CK-2) Rel Index Troponin I (0.000-0.034) ng/mL NT-Pro-B Natriuret Pep 57 pg/mL Total Protein (6.3-8.2) g/dL Albumin (3.5-5.0) g/dL - Radiology Data Radiology results: image reviewed (Chest x-ray shows some interstitial peribronchial prominence. No consolidation.) Disposition Clinical Impression: Acute exacerbation of chronic obstructive airways disease, Acute bronchitis Disposition: ADMITTED IP TO THIS HOSP Referrals: Jhonatan Reza MD [Primary Care Provider] - 1-2 days Decision Time: 17:46
[2017-10-23 15:50] LABS: Basophils % (A) 0 %; Eosinophils # (A) 0.2 k/uL (0-0.7); Eosinophils % (A) 2 %; HCT 43.7 % (39.0-53.0); HGB 14.1 gm/dL (13.0-17.5); Lymphocytes # (A) 0.8 k/uL (1.0-4.8); Lymphocytes % (A) 10 %; MCH 27.6 pg (25.0-35.0); MCHC 32.2 g/dL (31.0-37.0); MCV 85.8 fL (80.0-100.0); Mean Platelet Volume 7.2; Monocytes # (A) 0.5 k/uL (0-1.0); Monocytes % (A) 6 %; Neutrophils # (A) 6.3 k/uL (1.3-7.7); Neutrophils % (A) 79 %; Platelet Count 235 k/uL (150-450); RBC 5.09 m/uL (4.30-5.90); RDW 15.3 % (11.5-15.5)
[2017-10-23 16:04] LABS: ALT 35 U/L (21-72); AST 28 U/L (17-59); Albumin 3.3 g/dL (3.5-5.0); Alkaline Phosphatase 68 U/L (38-126); Anion Gap 8 mmol/L; Blood Urea Nitrogen 19 mg/dL (9-20); Calcium 8.8 mg/dL (8.4-10.2); Carbon Dioxide 33 mmol/L (22-30); Chloride 100 mmol/L (98-107); Glucose 74 mg/dL (74-99); Potassium 3.5 mmol/L (3.5-5.1); Sodium 141 mmol/L (137-145); Total Bilirubin 0.5 mg/dL (0.2-1.3); Total Protein 6.7 g/dL (6.3-8.2)
[2017-10-23 16:06] LABS: INR 1.1 (<1.2); Partial Thromboplastin Time 30.6 sec (22.0-30.0); Prothrombin Time 10.7 sec (9.0-12.0)
[2017-10-23 16:09] LABS: Creatine Kinase 44 U/L (55-170)
[2017-10-23 16:22] LABS: Creatine Kinase MB 0.5 ng/mL (0.0-2.4); Troponin I <0.012 ng/mL (0.000-0.034)
--- NOTE | 2017-10-23 16:35 | XR ---
EXAMINATION TYPE: XR chest 2V DATE OF EXAM: 10/23/2017 COMPARISON: None HISTORY: 57-year-old male difficulty breathing TECHNIQUE: AP and lateral views FINDINGS: Heart upper limits of normal in size. Diffuse interstitial and peribronchial densities. No consolidat ion or pleural effusion. IMPRESSION: Correlate for bronchitis, uncontrolled asthma, or atypical pneumonias.
[2017-10-23] MEDS ORDERED: IPRATROPIUM-ALBUTEROL 3 ML NEB INHALATION PRN (17:46)
[2017-10-23] MEDS ORDERED: PNEUMONIA PROTOCOL UTILIZED 1 EACH MISC PO PRN (17:47)
[2017-10-23] MEDS ORDERED: AZITHROMYCIN 500 MG in SODIUM CHLORIDE 0.9% 250 ML IVPB STA (17:58)
[2017-10-23] MEDS ORDERED: cefTRIAXone IN SWFI 1,000 MG/10 ML SYRINGE IVP STA (17:58)
[2017-10-23] MEDS: SODIUM CHLORIDE 0.9% 1,000 ML IV SCH (19:00)
[2017-10-23] MEDS ORDERED: methylPREDNISolone SOD SUCCI 125 MG/2 ML VIAL IV SCH (19:30)
[2017-10-23] MEDS: IPRATROPIUM-ALBUTEROL 3 ML NEB INHALATION SCH (20:53)
[2017-10-23] MEDS ORDERED: NALOXONE 0.4 MG/ML 1 ML VIAL IV PRN (22:50)
[2017-10-23] MEDS ORDERED: MELATONIN 3 MG TABLET PO PRN (22:50)
[2017-10-23] MEDS ORDERED: LORazepam 0.5 MG TAB PO PRN (22:50)
[2017-10-23] MEDS ORDERED: ACETAMINOPHEN TAB 325 MG TAB PO PRN (22:50)
[2017-10-23] MEDS ORDERED: Acetaminophen-Codeine 300-30mg TAB PO PRN (22:50)
[2017-10-23] MEDS ORDERED: CEFUROXIME 250 MG TAB PO SCH (23:00)
[2017-10-23] MEDS: PREGABALIN 75 MG CAP PO SCH (23:49)
[2017-10-23] MEDS: ASPIRIN 81 MG PO SCH (23:50)
[2017-10-23] MEDS: ATORVASTATIN 20 MG TAB PO SCH (23:50)
[2017-10-23] MEDS: SERTRALINE 100 MG TAB PO SCH (23:50)
[2017-10-23] MEDS: ENOXAPARIN 40 MG/0.4 ML SYRINGE SQ SCH (23:50)
[2017-10-23] MEDS: metFORMIN 500 MG TAB PO SCH (23:50)
--- NOTE | 2017-10-23 23:54 | HP ---
HISTORY AND PHYSICAL DATE OF ADMISSION: 10/23/17 PRESENTING COMPLAINT: Cough, short of breath. HISTORY OF PRESENTING COMPLAINT: This is a 57-year-old patient of Dr. Reza. Chronic stable medical conditions include right-sided hemiplegia from prior stroke, some stroke induced memory loss, hypertension, hyperlipidemia, diabetes. The patient is pretty much paralyzed on the right side. Uses a wheelchair. Patient's sister was a caregiver. The patient presents with increasing shortness of breath for over a week, cough, congested, fever. Appetite is fair, but still continues to smoke a few cigarettes a day, presented to the ER. REVIEW OF SYSTEMS: Constitutional: Tired. HEENT as above. Respiratory as above. Cardiovascular none. Gastrointestinal none. Genitourinary none. Musculoskeletal: None. Dermatological: Chronic skin changes especially in the right lower extremity. Hematological, lymphatics none. Psychiatry none. Neurological: Paralyzed on the right side. PAST MEDICAL HISTORY: COPD, right hemiplegia from a stroke, memory impaired from stroke, hypertension, hyperlipidemia, diabetes, chronic swelling of the right lower extremity. Additional past medical history is chronic pain in the right side of the body, rectal fissure. PAST SURGICAL HISTORY: Colonoscopy, CONNER, failed Lott filter. SOCIAL HISTORY: Patient resides at [facility], is wheelchair bound, able to transfer himself. He has a caregiver and [id number] manages his medications and does other assistance. He does use a bus to get to his appointments. Patient smokes about 1/3 of a pack a day, he used to drink heavily up to about 9 years ago. FAMILY HISTORY: COPD, hyperlipidemia, hypertension, heart disease in the mother. HOME MEDICATIONS: 1. Metformin 5 mg b.i.d. 2. Fentanyl 100 mcg patch every 48 hours. 3. Zocor 40 mg q.h.s. 4. Zoloft 100 mg q.h.s. 5. Lyrica 550 mg b.i.d. 6. Lasix 40 mg p.o. daily. 7. Aspirin 81 mg q.h.s. ALLERGIES: None. PHYSICAL EXAMINATION: On examination, morbidly obese, BMI 40.7. Lying in bed, short of breath. Eyes: Pupils equal. Conjunctivae normal. HEENT external appearance of nose and ears normal. Oral cavity normal. Neck JVD unable to assess. Mass not palpable. Respiratory effort increased. Lungs diminished breath sounds. Prolonged expiration wheezing. Cardiovascular 1st and 2nd sounds normal. Edema, more so on the right leg. Gastrointestinal: Abdomen distended soft, liver and spleen not palpable. Lymphatics: No lymph nodes palpable in the neck and axilla. Psychiatry: Alert and orient x3. Mood and affect normal. Extremities: Right leg grossly swelled up with what appears to be lymphedema and gross disfiguration of lower leg with chronic venous changes and hyperpigmentation. Neurological: Pupils equal. Cranial nerves grossly intact. Power on the right side is 0/5 decreased sensation. INVESTIGATIONS: White count 18, hemoglobin 14.1 potassium 3.5. Chest x-ray reviewed shows possible infiltrate. ASSESSMENT: 1. Acute severe chronic obstructive pulmonary disease exacerbation in a current smoker. 2. Chronic nicotine dependence, patient is a cigarette smoker. 3. Possible pneumonia suspect gram-negative organism. 4. Right dense hemiplegia from an old stroke. 5. Essential hypertension. 6. Hyperlipidemia. 7. Diabetes mellitus type 2 on oral hypoglycemic. 8. Possible chronic lymphedema of the right lower extremity with chronic skin changes. 9. Depression, not otherwise specified. PLAN: Patient is started on IV antibiotics nebulized bronchodilators steroids. The patient will be admitted. Will need at least 2-night stay in the hospital. Pulmonary was consulted. Smoking cessation counseling was done with the patient including effects on COPD. At least 3 minutes was spent on this aspect of the case. Copy to Dr. Reza. GARRETT / LIVAN: [id number] /
[2017-10-24] MEDS: SODIUM CHLORIDE 0.9% 1,000 ML IV SCH ×3 (05:12→23:26)
[2017-10-24] MEDS: INSULIN ASPART 100 UNIT/ML 1 ML 10 ML VIAL SQ SCH ×3 (07:30→17:25)
[2017-10-24 07:31] LABS: Glucose,Whole Blood 119 mg/dL (75-99)
[2017-10-24] MEDS: IPRATROPIUM-ALBUTEROL 3 ML NEB INHALATION SCH ×4 (07:39→21:31)
[2017-10-24] MEDS: BUDESONIDE 1 MG/2 ML NEBU INHALATION SCH ×2 (07:39→21:31)
[2017-10-24] MEDS: methylPREDNISolone SOD SUCCI 40 MG/ML 1 ML VIAL IV SCH ×3 (09:57→23:25)
[2017-10-24] MEDS: metFORMIN 500 MG TAB PO SCH ×2 (09:58→20:08)
[2017-10-24] MEDS: ENOXAPARIN 40 MG/0.4 ML SYRINGE SQ SCH (09:58)
[2017-10-24] MEDS: cefTRIAXone IN SWFI 1,000 MG/10 ML SYRINGE IVP SCH (09:58)
[2017-10-24] MEDS: PREGABALIN 75 MG CAP PO SCH ×2 (10:16→20:07)
[2017-10-24 12:19] LABS: Glucose,Whole Blood 121 mg/dL (75-99)
--- NOTE | 2017-10-24 14:37 | XR ---
EXAMINATION TYPE: XR chest 1V portable DATE OF EXAM: 10/24/2017 COMPARISON: NONE HISTORY: 10/23/2017 TECHNIQUE: Single frontal view of the chest is obtained. FINDINGS: There is no focal air space opacity, pleural effusion, or pneumothorax seen. The cardiac silhouette size is within normal limits. The osseous structures are intact. Vascular stent noted. T here is mild cardiomegaly. IMPRESSION: No acute process.
--- NOTE | 2017-10-24 15:34 | PN ---
PROGRESS NOTE DATE OF SERVICE: 10/24/17 PRESENT COMPLAINT: Cough, short of breath. INTERVAL HISTORY: This is a patient who is a smoker, presented for acute severe COPD exacerbation. Still congested, cough, short of breath. Did tolerate some diet. Lying in bed. REVIEW OF SYSTEMS: Done for constitutional, cardiovascular, GI, pulmonary, relevant findings as above. CURRENT MEDICATIONS: Reviewed that include DuoNeb, Zithromax and ceftriaxone and Solu-Medrol. PHYSICAL EXAMINATION: Temperature 96.7, pulse 76, respiration 22, blood pressure 100/69, pulse ox 94% on 4 L. GENERAL APPEARANCE: Lying in bed, tired appearing. Eyes pupils are equal. Conjunctivae normal. HEENT external appearance of nose and ears normal. Oral cavity normal. Neck: JVD unable to assess. Mass not palpable. Respiratory effort increased. Lungs decreased breath sounds. Prolonged expiration. Some crackles and wheezing. Cardiovascular: 1st and 2nd sounds normal. Edema present. ABDOMEN: Soft, nontender. Liver and spleen not palpable. Extremities: Right leg grossly swelled up what appears to be lymphedema and gross discoloration with chronic venous changes and hyperpigmentation. Neurological: Power on the right side is 0/5. INVESTIGATIONS: White count 18, hemoglobin 14.1 potassium 3.5. ASSESSMENT: 1. Acute severe chronic obstructive pulmonary disease exacerbation in a current smoker, slow to respond with pneumonia suspect gram-negative organism. 2. Chronic nicotine dependence in a cigarette smoker. 3. Right dense hemiplegia from an old stroke. 4. Essential hypertension. 5. Hyperlipidemia. 6. Diabetes mellitus type 2 on oral hypoglycemic. 7. Chronic lymphedema of the right lower extremity with chronic skin changes. 8. Depression not otherwise specified. 9. Chronic lymphedema of the right lower extremity with venostasis. PLAN: Continue with IV antibiotics, nebulized bronchodilators, IV steroids. Care was discussed with the patient. Follow. MMODL / IJN: [id number] /
[2017-10-24 17:05] LABS: Glucose,Whole Blood 132 mg/dL (75-99)
[2017-10-24] MEDS: FUROSEMIDE 20 MG TAB PO SCH (17:14)
[2017-10-24] MEDS ORDERED: AZITHROMYCIN 500 MG TAB PO SCH (18:00)
[2017-10-24] MEDS: ATORVASTATIN 20 MG TAB PO SCH (20:08)
[2017-10-24] MEDS: SERTRALINE 100 MG TAB PO SCH (20:08)
[2017-10-24] MEDS: ASPIRIN 81 MG PO SCH (20:08)
--- NOTE | 2017-10-24 20:49 | P.CNPUL ---
History of Present Illness Consult date: 10/24/17 Requesting physician: Liam Brito Reason for consult: dyspnea, cough, COPD, abnormal CXR/CT Chief complaint: Dyspnea, cough, chest congestion History of present illness: Ino is a 57-year-old white male patient of Dr. Reza, who was brought to the emergency department per EMS on 10/23/2017 at 1507, with complaints of increasing dyspnea, increasing chest congestion, nonproductive cough with the onset of symptoms a week ago. However over the past 3 days his symptoms became progressively worse, and patient was urged to go to the hospital for further evaluation and treatment by his family. Did have a fever several days ago but currently is afebrile. Patient has an underlying history of COPD, he is a current smoker, currently down to 1 pack every 3 days, does not wear oxygen at home, is not on any inhalers. Has never seen a lung specialist for his COPD in the past. 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 Patient is wheelchair bound, lives in an apartment complex, and has a caregiver is a family member help him with medications. Chest x-ray from 10/23/2017 showed diffuse interstitial and peribronchial densities, but no evidence of consolidation or pleural effusion. Follow-up chest x-ray from 10/24/2017 showed no acute process. Influenza screen was negative. Patient has no evidence of leukocytosis, plasma lactic acid was 0.7, troponins were negative 1 , proBNP was non-elevated at 57. Patient was started on a combination of Zithromax, Rocephin, DuoNeb, Pulmicort, IV Solu-Medrol and admitted for further management. Review of Systems All systems: negative Constitutional: Denies chills, Denies fever Eyes: denies blurred vision, denies pain Ears, nose, mouth and throat: Denies headache, Denies sore throat Cardiovascular: Denies chest pain, Denies shortness of breath Respiratory: Denies cough Gastrointestinal: Denies abdominal pain, Denies diarrhea, Denies nausea, Denies vomiting Musculoskeletal: Denies myalgias Integumentary: Denies pruritus, Denies rash Neurological: Denies numbness, Denies weakness Psychiatric: Denies anxiety, Denies depression Endocrine: Denies fatigue, Denies weight change Past Medical History Past Medical History: Heart Failure, COPD, CVA/TIA, Diabetes Mellitus, Hyperlipidemia, Hypertension, Memory Impairment Additional Past Medical History / Comment(s): 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 History of Any Multi-Drug Resistant Organisms: None Reported Past Surgical History: No Surgical Hx Reported Additional Past Surgical History / Comment(s): colonoscopy/benign polypectomy, CONNER, failed casandra filter. Past Anesthesia/Blood Transfusion Reactions: No Reported Reaction Past Psychological History: No Psychological Hx Reported Additional Psychological History / Comment(s): Pt resides at [facility]. He is wheelchair bound. He is able to transfer self to chair. He has a caregiver, his [id number] who manages his meds and is available to assist him when he calls her. He uses the bus system to get to appts. Smoking Status: Current every day smoker Past Alcohol Use History: None Reported Additional Past Alcohol Use History / Comment(s): Pt states recently he is down to 2 cigarettes a day. Previously, he smoked between a pack and 2 packs a day. He states he has not drank alcohol in 9 yrs and used to drink heavily. Past Drug Use History: None Reported - Past Family History Mother Family Medical History: COPD, Hyperlipidemia, Hypertension Additional Family Medical History / Comment(s): Mother has heart disease. She is 78yrs old. Father Family Medical History: Unable to Obtain Additional Family Medical History / Comment(s): Father at the age of 65 yrs. Pt cannot recall father's medical hx. Medications and Allergies Home Medications Medication Instructions Recorded Confirmed Type Aspirin 81 mg PO HS 04/03/17 10/23/17 History Furosemide [Lasix] 40 mg PO DAILY 04/03/17 10/23/17 History Pregabalin [Lyrica] 150 mg PO BID 04/03/17 10/23/17 History Sertraline HCl [Zoloft] 100 mg PO HS 04/03/17 10/23/17 History Simvastatin [Zocor] 40 mg PO HS 04/03/17 10/23/17 History fentaNYL 100MCG/HR PATCH 1 patch TRANSDERM Q48H 04/03/17 10/23/17 History [Duragesic 100MCG/HR] metFORMIN HCL [Glucophage] 500 mg PO BID 04/03/17 10/23/17 History Allergies Allergy/AdvReac Type Severity Reaction Status Date / Time No Known Allergies Allergy Verified 10/23/17 15:39 Physical Exam Vitals: Vital Signs Temp Pulse Pulse Resp BP BP Pulse Ox 10/24/17 11:37 82 10/24/17 11:25 80 10/24/17 07:00 96.7 F L 76 18 122/69 94 L 10/23/17 23:00 97.2 F L 96 14 104/55 92 L 10/23/17 21:04 96 10/23/17 20:53 96 10/23/17 19:18 98.5 F 81 20 124/62 95 10/23/17 16:03 91 10/23/17 16:00 88 20 145/69 96 10/23/17 15:56 92 10/23/17 15:12 97.2 F L 93 18 148/65 96 Intake and Output 10/24/17 10/24/17 10/24/17 06:59 14:59 22:59 Intake Total 480 Balance 480 Intake: Oral 480 GENERAL EXAM: Alert, 57-year-old obese white male, comfortable in no apparent distress. HEAD: Normocephalic/atraumatic. EYES: Normal reaction of pupils, equal size. Conjunctiva pink, sclera white. NOSE: Clear with pink turbinates. THROAT: No erythema or exudates. NECK: No masses, no JVD, no thyroid enlargement, no adenopathy. CHEST: No chest wall deformity. Symmetrical expansion. LUNGS: Equal air entry with no diffuse scattered rhonchi and wheezes CVS: Regular rate and rhythm, normal S1 and S2, no gallops, no murmurs, no rubs ABDOMEN: Soft, nontender, obese. No hepatosplenomegaly, normal bowel sounds, no guarding or rigidity. EXTREMITIES: No clubbing, no edema, no cyanosis, 2+ pulses and upper and lower extremities. Right-sided paralysis with chronic right hand contractures. Right lower extremity lymphedema, venous stasis noted MUSCULOSKELETAL: Muscle strength and tone normal. SPINE: No scoliosis or deformity SKIN: No rashes CENTRAL NERVOUS SYSTEM: Alert and oriented -3. Right-sided flaccid paralysis PSYCHIATRIC: Alert and oriented -3. Appropriate affect. Intact judgment and insight. Results - Laboratory Findings CBC and BMP: 10/23/17 15:36 10/23/17 15:36 PT/INR, D-dimer PT 10.7 sec (9.0-12.0) 10/23/17 15:36 INR 1.1 (<1.2) 10/23/17 15:36 Abnormal lab findings: Abnormal Labs 10/23/17 10/23/17 10/23/17 15:36 15:36 15:36 Lymphocytes # 0.8 L APTT Carbon Dioxide 33 H Creatinine 0.60 L POC Glucose (mg/dL) Total Creatine Kinase 44 L Albumin 3.3 L 10/23/17 10/24/17 10/24/17 15:36 07:28 12:12 Lymphocytes # APTT 30.6 H Carbon Dioxide Creatinine POC Glucose (mg/dL) 119 H 121 H Total Creatine Kinase Albumin - Diagnostic Findings Chest x-ray: report reviewed Additional studies: EKG reviewed Assessment and Plan Plan: Assessment: #1. Acute exacerbation of COPD, with tracheobronchitis. Chest x-rays showed diffuse interstitial and peribronchial densities, but no evidence of pneumonia #2. Nicotine dependence, ongoing, currently down to 1 pack every 3 days #3. COPD, the severity of which is unknown at this time. Patient is not oxygen dependent on a regular basis #4. Obesity #5. Suspect obstructive sleep apnea, patient has significant crowding of the posterior oropharynx, the Mallampati classification IV #6. History of CVA with right-sided paralysis #7. Diabetes mellitus #8. Hyperlipidemia, hypertension #9. History of heart failure, unspecified #10. Right lower extremity lymphedema, venous stasis #11. Depression #12. Gait dysfunction, due to right-sided paralysis, patient is wheelchair bound Plan: Continue IV steroids, continue DuoNeb, Pulmicort. We'll add Perforomist. Continue Zithromax, Rocephin. We'll add Lasix 20 mg twice daily. GI/DVT prophylaxis. We will obtain Doppler of the right lower extremity to rule out DVT. We'll continue to follow with you. I performed a history & physical examination of the patient and discussed their management with my nurse practitioner, Nidhi Koch. I reviewed the nurse practitioner's note and agree with the documented findings and plan of care. Lung sounds are positive for diffuse rhonchi and wheezes throughout the lung shrestha. The findings and the impression was discussed with the patient. I attest to the documentation by the nurse practitioner. Time with Patient: Greater than 30
[2017-10-24 21:02] LABS: Glucose,Whole Blood 142 mg/dL (75-99)
[2017-10-25 07:02] LABS: Glucose,Whole Blood 125 mg/dL (75-99)
[2017-10-25] MEDS: INSULIN ASPART 100 UNIT/ML 1 ML 10 ML VIAL SQ SCH ×3 (07:14→17:38)
[2017-10-25] MEDS: FORMOTEROL FUMARATE 20 MCG/2 ML NEBU INHALATION SCH ×2 (08:21→19:59)
[2017-10-25] MEDS: BUDESONIDE 1 MG/2 ML NEBU INHALATION SCH ×2 (08:21→19:59)
[2017-10-25] MEDS: IPRATROPIUM-ALBUTEROL 3 ML NEB INHALATION SCH ×4 (08:21→19:59)
--- NOTE | 2017-10-25 08:56 | US ---
EXAMINATION TYPE: US venous doppler duplex LE RT DATE OF EXAM: 10/25/2017 7:40 AM COMPARISON: NONE CLINICAL HISTORY: swelling, rule out DVT. Edema, discoloration, hardness right lower leg. History of DVT 15 years ago SIDE PERFORMED: right TECHNIQUE: The lower extremity deep venous system is examined utilizing real time linear array sonog kathryn with graded compression, doppler sonography and color-flow sonography. VESSELS IMAGED: External Iliac Vein (EIV) Common Femoral Vein Deep Femoral Vein Greater Saphenous Vein * Femoral Vein Popliteal Vein Small Saphenous Vein * Proximal Calf Veins (* superficial vessels) Right Leg: No evidence of DVT as visualized IMPRESSION: 1. No diagnostic evidence of DVT as visualized.
[2017-10-25] MEDS: methylPREDNISolone SOD SUCCI 40 MG/ML 1 ML VIAL IV SCH ×3 (09:28→23:40)
[2017-10-25] MEDS: ENOXAPARIN 40 MG/0.4 ML SYRINGE SQ SCH (09:28)
[2017-10-25] MEDS: cefTRIAXone IN SWFI 1,000 MG/10 ML SYRINGE IVP SCH (09:28)
[2017-10-25] MEDS: FUROSEMIDE 20 MG TAB PO SCH ×2 (09:28→15:49)
[2017-10-25] MEDS: PREGABALIN 75 MG CAP PO SCH ×2 (09:29→21:21)
[2017-10-25] MEDS: metFORMIN 500 MG TAB PO SCH ×2 (09:29→21:21)
[2017-10-25] MEDS: SODIUM CHLORIDE 0.9% 1,000 ML IV SCH ×2 (09:30→21:21)
--- NOTE | 2017-10-25 11:20 | P.PN ---
Subjective Progress Note Date: 10/25/17 Principal diagnosis: Acute exacerbation of COPD with tracheobronchitis Ino is a 57-year-old white male patient of Dr. Reza, who was brought to the emergency department per EMS on 10/23/2017 at 1507, with complaints of increasing dyspnea, increasing chest congestion, nonproductive cough with the onset of symptoms a week ago. However over the past 3 days his symptoms became progressively worse, and patient was urged to go to the hospital for further evaluation and treatment by his family. Did have a fever several days ago but currently is afebrile. Patient has an underlying history of COPD, he is a current smoker, currently down to 1 pack every 3 days, does not wear oxygen at home, is not on any inhalers. Has never seen a lung specialist for his COPD in the past. 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 Patient is wheelchair bound, lives in an apartment complex, and has a caregiver is a family member help him with medications. Chest x-ray from 10/23/2017 showed diffuse interstitial and peribronchial densities, but no evidence of consolidation or pleural effusion. Follow-up chest x-ray from 10/24/2017 showed no acute process. Influenza screen was negative. Patient has no evidence of leukocytosis, plasma lactic acid was 0.7, troponins were negative 1 , proBNP was non-elevated at 57. Patient was started on a combination of Zithromax, Rocephin, DuoNeb, Pulmicort, IV Solu-Medrol and admitted for further management. On 10/25/2017 patient seen in follow-up on medical surgical floor. Still has the cough, not able to bring up any sputum. Lung sounds are much less rhonchorous on today's exam, still positive for diffuse wheezes. Denies any fever, chills, or chest pain. Remains on 4 L per nasal cannula, and O2 sat at 92-94%. Patient is afebrile. Doppler of the right lower extremity was negative for any evidence of DVT. Continue with current plan of care, with IV steroids, antibiotics, nebulized treatments. Add a flutter valve and incentive spirometry. Objective - Vital Signs Vital signs: Vital Signs Temp 98.4 F 10/25/17 06:34 Pulse 92 10/25/17 08:43 Resp 20 10/25/17 06:34 BP 108/62 10/25/17 06:34 Pulse Ox 92 L 10/25/17 06:34 Intake & Output 10/24/17 10/25/17 10/25/17 18:59 06:59 18:59 Intake Total 960 Output Total 900 Balance 60 Intake: Oral 960 Output: Urine 900 Other: # Voids 2 3 # Bowel Movements 1 - Exam GENERAL EXAM: Alert, 57-year-old obese white male, comfortable in no apparent distress. HEAD: Normocephalic/atraumatic. EYES: Normal reaction of pupils, equal size. Conjunctiva pink, sclera white. NOSE: Clear with pink turbinates. THROAT: No erythema or exudates. NECK: No masses, no JVD, no thyroid enlargement, no adenopathy. CHEST: No chest wall deformity. Symmetrical expansion. LUNGS: Equal air entry with diffuse scattered rhonchi and wheezes, patient sounds less congested compared to yesterday's exam CVS: Regular rate and rhythm, normal S1 and S2, no gallops, no murmurs, no rubs ABDOMEN: Soft, nontender, obese. No hepatosplenomegaly, normal bowel sounds, no guarding or rigidity. EXTREMITIES: No clubbing, no edema, no cyanosis, 2+ pulses and upper and lower extremities. Right-sided paralysis with chronic right hand contractures. Right lower extremity lymphedema, venous stasis noted MUSCULOSKELETAL: Muscle strength and tone normal. SPINE: No scoliosis or deformity SKIN: No rashes CENTRAL NERVOUS SYSTEM: Alert and oriented -3. Right-sided flaccid paralysis PSYCHIATRIC: Alert and oriented -3. Appropriate affect. Intact judgment and insight. - Labs CBC & Chem 7: 10/23/17 15:36 10/23/17 15:36 Labs: Abnormal Lab Results - Last 24 Hours (Table) 10/24/17 10/24/17 10/24/17 Range/Units 12:12 17:03 21:00 POC Glucose (mg/dL) 121 H 132 H 142 H (75-99) mg/dL 10/25/17 Range/Units 06:59 POC Glucose (mg/dL) 125 H (75-99) mg/dL Microbiology - Last 24 Hours (Table) 10/23/17 18:50 Blood Culture - Preliminary Blood No Growth after 24 hours Assessment and Plan Plan: Assessment: #1. Acute exacerbation of COPD, with tracheobronchitis. Chest x-rays showed diffuse interstitial and peribronchial densities, but no evidence of pneumonia #2. Nicotine dependence, ongoing, currently down to 1 pack every 3 days #3. COPD, the severity of which is unknown at this time. Patient is not oxygen dependent on a regular basis #4. Obesity #5. Suspect obstructive sleep apnea, patient has significant crowding of the posterior oropharynx, the Mallampati classification IV #6. History of CVA with right-sided paralysis #7. Diabetes mellitus #8. Hyperlipidemia, hypertension #9. History of heart failure, unspecified #10. Right lower extremity lymphedema, venous stasis, DVT was ruled out by right lower leg Doppler 10/25/2017 #11. Depression #12. Gait dysfunction, due to right-sided paralysis, patient is wheelchair bound Plan: Patient sounds less congested on today's exam, still unable to bring up any sputum. Still remains diffusely wheezy, but overall slightly improved from yesterday's exam. Continue IV steroids, continue DuoNeb, Pulmicort, Perforomist. Continue Zithromax, Rocephin. Continue Lasix 20 mg twice daily. We will add a flutter valve and incentive spirometry. GI/DVT prophylaxis. Right lower extremity DVT was ruled out. We'll continue to follow with you. I performed a history & physical examination of the patient and discussed their management with my nurse practitioner, Nidhi Koch. I reviewed the nurse practitioner's note and agree with the documented findings and plan of care. Lung sounds are positive for diffuse rhonchi and wheezes throughout the lung shrestha. The findings and the impression was discussed with the patient. I attest to the documentation by the nurse practitioner. Time with Patient: Less than 30
[2017-10-25 12:26] LABS: Glucose,Whole Blood 152 mg/dL (75-99)
[2017-10-25 17:00] LABS: Glucose,Whole Blood 168 mg/dL (75-99)
[2017-10-25] MEDS: guaiFENesin 600 MG TABLET.ER PO SCH (18:12)
--- NOTE | 2017-10-25 19:26 | PN ---
PROGRESS NOTE DATE OF SERVICE: 10/25/2017 PRESENTING COMPLAINT: Cough, shortness of breath. INTERVAL HISTORY: This patient with right-sided hemiplegia, smoker, presented with COPD exacerbation with acute tracheobronchitis. Wheezing is a bit better but still present. He is congested, not able to expectorate. Did tolerate a diet. REVIEW OF SYSTEMS: Done for constitutional, cardiovascular, GI, pulmonary; relevant findings as above. CURRENT MEDICATIONS: Current medications are reviewed that include: 1. DuoNeb. 2. Zithromax. 3. IV Solu-Medrol. 4. IV ceftriaxone. PHYSICAL EXAMINATION: Temperature 98.4, pulse 77, respiration 20, blood pressure 108/62, pulse ox 92% on 4 L. GENERAL APPEARANCE: Lying in bed, tired-appearing. EYES: Pupils equal. Conjunctivae normal. HEENT: External appearance of nose and ears normal. Oral cavity normal. NECK: JVD unable to assess. Mass not palpable. RESPIRATORY: Effort increased. LUNGS: Some expiratory crackles. Decreased wheezing. CARDIOVASCULAR: First and second sounds normal. Lymphedema on the right leg. GASTROINTESTINAL: Abdomen soft, non-tender. Liver and spleen not palpable. PSYCHIATRY: Alert and oriented x3. Mood and affect normal. EXTREMITIES: Gross lymphedema and disfiguration of the right lower extremity with chronic venous changes and hyperpigmentation. NEUROLOGICAL: Power on the right side is 0/5, including the arms and legs. INVESTIGATIONS: Accu-Cheks noted. Doppler ultrasound negative for DVT in the right leg. ASSESSMENT: 1. Acute severe chronic obstructive pulmonary disease exacerbation in a current smoker, slow to respond. 2. Chronic nicotine dependence. Patient is an active cigarette smoker. 3. Right dense hemiplegia from old stroke. 4. Essential hypertension. 5. Hyperlipidemia. 6. Diabetes mellitus, type 2, on oral hypoglycemic. 7. Chronic lymphedema of the right lower extremity with chronic skin changes. 8. Depression not otherwise specified. 9. Morbid obesity; body mass index of 48.7. 10.Acute tracheobronchitis. No pneumonia. PLAN: Continue current medication and treatment plan. Will add Mucinex. Will discontinue the Zithromax. Care was discussed with the patient. MMODL / IJN: [id number] /
[2017-10-25 20:49] LABS: Glucose,Whole Blood 140 mg/dL (75-99)
[2017-10-25] MEDS: SERTRALINE 100 MG TAB PO SCH (21:21)
[2017-10-25] MEDS: ATORVASTATIN 20 MG TAB PO SCH (21:21)
[2017-10-25] MEDS: ASPIRIN 81 MG PO SCH (21:21)
[2017-10-26] MEDS: SODIUM CHLORIDE 0.9% 1,000 ML IV SCH (06:14)
[2017-10-26] MEDS ORDERED: NAPROXEN 250 MG TAB PO PRN (06:42)
[2017-10-26 07:36] LABS: Glucose,Whole Blood 106 mg/dL (75-99)
[2017-10-26] MEDS: INSULIN ASPART 100 UNIT/ML 1 ML 10 ML VIAL SQ SCH ×3 (07:56→17:58)
[2017-10-26] MEDS: BUDESONIDE 1 MG/2 ML NEBU INHALATION SCH ×2 (08:18→21:50)
[2017-10-26] MEDS: IPRATROPIUM-ALBUTEROL 3 ML NEB INHALATION SCH ×4 (08:18→21:50)
[2017-10-26] MEDS: FORMOTEROL FUMARATE 20 MCG/2 ML NEBU INHALATION SCH ×2 (08:18→21:50)
[2017-10-26] MEDS: cefTRIAXone IN SWFI 1,000 MG/10 ML SYRINGE IVP SCH (08:42)
[2017-10-26] MEDS: PREGABALIN 75 MG CAP PO SCH ×2 (08:42→20:05)
[2017-10-26] MEDS: methylPREDNISolone SOD SUCCI 40 MG/ML 1 ML VIAL IV SCH ×3 (08:43→23:23)
[2017-10-26] MEDS: metFORMIN 500 MG TAB PO SCH ×2 (08:43→20:05)
[2017-10-26] MEDS: guaiFENesin 600 MG TABLET.ER PO SCH ×2 (08:43→20:05)
[2017-10-26] MEDS: ENOXAPARIN 40 MG/0.4 ML SYRINGE SQ SCH (08:43)
[2017-10-26] MEDS: FUROSEMIDE 20 MG TAB PO SCH ×2 (08:43→15:11)
[2017-10-26 12:04] LABS: Glucose,Whole Blood 155 mg/dL (75-99)
--- NOTE | 2017-10-26 13:21 | P.PN ---
Subjective Progress Note Date: 10/26/17 Principal diagnosis: Acute exacerbation of chronic obstructive disease, complicated by acute tracheobronchitisChandu Mckinnon is a 57-year-old white male patient of Dr. Reza, who was brought to the emergency department per EMS on 10/23/2017 at 1507, with complaints of increasing dyspnea, increasing chest congestion, nonproductive cough with the onset of symptoms a week ago. However over the past 3 days his symptoms became progressively worse, and patient was urged to go to the hospital for further evaluation and treatment by his family. Did have a fever several days ago but currently is afebrile. Patient has an underlying history of COPD, he is a current smoker, currently down to 1 pack every 3 days, does not wear oxygen at home, is not on any inhalers. Has never seen a lung specialist for his COPD in the past. 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 Patient is wheelchair bound, lives in an apartment complex, and has a caregiver is a family member help him with medications. Chest x-ray from 10/23/2017 showed diffuse interstitial and peribronchial densities, but no evidence of consolidation or pleural effusion. Follow-up chest x-ray from 10/24/2017 showed no acute process. Influenza screen was negative. Patient has no evidence of leukocytosis, plasma lactic acid was 0.7, troponins were negative 1 , proBNP was non-elevated at 57. Patient was started on a combination of Zithromax, Rocephin, DuoNeb, Pulmicort, IV Solu-Medrol and admitted for further management. On 10/25/2017 patient seen in follow-up on medical surgical floor. Still has the cough, not able to bring up any sputum. Lung sounds are much less rhonchorous on today's exam, still positive for diffuse wheezes. Denies any fever, chills, or chest pain. Remains on 4 L per nasal cannula, and O2 sat at 92-94%. Patient is afebrile. Doppler of the right lower extremity was negative for any evidence of DVT. Continue with current plan of care, with IV steroids, antibiotics, nebulized treatments. Add a flutter valve and incentive spirometry. The patient is seen again today 10/26/2017 in follow-up on the regular medical floor. He is awake and alert in no acute distress. He is doing better today as compared to yesterday. He continues with a loose nonproductive cough. No chills or night sweats. He is maintaining good O2 saturations in the mid 90s on 4 L/m per nasal cannula. His been afebrile. Hemodynamically stable. The culture reveals no growth to date. He is utilizing his incentive spirometer and flutter valve. Objective - Vital Signs Vital signs: Vital Signs Temp 98.9 F 10/26/17 07:00 Pulse 84 10/26/17 11:54 Resp 22 10/26/17 07:00 BP 101/57 10/26/17 07:00 Pulse Ox 95 10/26/17 08:22 Intake & Output 10/25/17 10/26/17 10/26/17 18:59 06:59 18:59 Intake Total 480 700 240 Output Total 1125 Balance -645 700 240 Intake: Oral 480 700 240 Output: Urine 1125 Other: Voiding Method Urinal # Voids 2 2 # Bowel Movements 0 - Exam GENERAL EXAM: Alert, 57-year-old obese white male, comfortable in no apparent distress. HEAD: Normocephalic/atraumatic. EYES: Normal reaction of pupils, equal size. Conjunctiva pink, sclera white. NOSE: Clear with pink turbinates. THROAT: No erythema or exudates. NECK: No masses, no JVD, no thyroid enlargement, no adenopathy. CHEST: No chest wall deformity. Symmetrical expansion. LUNGS: Equal air entry with diffuse scattered rhonchi and wheezes CVS: Regular rate and rhythm, normal S1 and S2, no gallops, no murmurs, no rubs ABDOMEN: Soft, nontender, obese. No hepatosplenomegaly, normal bowel sounds, no guarding or rigidity. EXTREMITIES: No clubbing, no edema, no cyanosis, 2+ pulses and upper and lower extremities. Right-sided paralysis with chronic right hand contractures. Right lower extremity lymphedema, venous stasis noted MUSCULOSKELETAL: Muscle strength and tone normal. SPINE: No scoliosis or deformity SKIN: No rashes CENTRAL NERVOUS SYSTEM: Alert and oriented -3. Right-sided flaccid paralysis PSYCHIATRIC: Alert and oriented -3. Appropriate affect. Intact judgment and insight. - Labs CBC & Chem 7: 10/23/17 15:36 10/23/17 15:36 Labs: Abnormal Lab Results - Last 24 Hours (Table) 10/25/17 10/25/17 10/26/17 Range/Units 16:50 20:20 07:05 POC Glucose (mg/dL) 168 H 140 H 106 H (75-99) mg/dL 10/26/17 Range/Units 12:01 POC Glucose (mg/dL) 155 H (75-99) mg/dL Microbiology - Last 24 Hours (Table) 10/23/17 18:50 Blood Culture - Preliminary Blood No Growth after 48 hours Assessment and Plan Assessment: Assessment: #1. Acute exacerbation of COPD, with tracheobronchitis. Chest x-rays showed diffuse interstitial and peribronchial densities, but no evidence of pneumonia #2. Nicotine dependence, ongoing, currently down to 1 pack every 3 days #3. COPD, the severity of which is unknown at this time. Patient is not oxygen dependent on a regular basis #4. Obesity #5. Suspect obstructive sleep apnea, patient has significant crowding of the posterior oropharynx, the Mallampati classification IV #6. History of CVA with right-sided paralysis #7. Diabetes mellitus #8. Hyperlipidemia, hypertension #9. History of heart failure, unspecified #10. Right lower extremity lymphedema, venous stasis, DVT was ruled out by right lower leg Doppler 10/25/2017 #11. Depression #12. Gait dysfunction, due to right-sided paralysis, patient is wheelchair bound Plan: The patient is seen and evaluated by Dr. Davidson. He is improved today as compared to yesterday. He is anxious to go home but still remains somewhat bronchospastic and wheezy. We'll continue with his current medications. Continue the increased use of the incentive spirometer and cough and deep breathing exercises. We will continue to follow make further recommendations based on his clinical status. I, the cosigning physician, performed a history & physical examination of the patient. Lungs sounds with bilateral wheezing, few scattered rhonchi. Maintaining good O2 saturations in the 90s on 4 L/m per nasal cannula. I discussed the assessment and plan of care with my nurse practitioner, Pamela David. I attest to the above note as dictated by her.
--- NOTE | 2017-10-26 16:15 | PN ---
PROGRESS NOTE DATE OF SERVICE: 10/26/2017 PRESENTING COMPLAINT: Cough, short of breath. INTERVAL HISTORY: Patient with dense right-sided hemiplegia presented with COPD exacerbation and acute tracheobronchitis. Breathing is getting better. Still congested in the chest, not able to expectorate much. Continues to tolerate a diet. Patient has got chronic low back pain. Normally sits on a wheelchair. REVIEW OF SYSTEMS: Done for constitutional, cardiovascular, GI, pulmonary; relevant findings as above. CURRENT MEDICATIONS: Current medications are reviewed that include: 1. DuoNeb. 2. IV Solu-Medrol. 3. Mucinex. PHYSICAL EXAMINATION: Temperature 98.9, pulse 69, respiration 22, blood pressure 101/57, pulse ox 93% on 4 L. GENERAL APPEARANCE: Lying in bed, awake. EYES: Pupils equal. Conjunctivae normal. HEENT: External appearance of nose and ears normal. Oral cavity normal. NECK: JVD unable to assess. Mass not palpable. RESPIRATORY: Effort increased. LUNGS: Decreased breath sounds. Expiratory wheezing. Some expiratory crackles, though better air entry. CARDIOVASCULAR: First and second sounds normal. Edema on the right leg. GASTROINTESTINAL: Abdomen soft, non-tender. Liver and spleen not palpable. No tenderness. PSYCHIATRY: Alert and oriented x3. Mood and affect normal. EXTREMITIES: Gross lymphedema with disfiguration of the right lower extremity with chronic venous changes and hyperpigmentation. NEUROLOGICAL: Power on the right side is 0/5 both in the arms and legs. INVESTIGATIONS: Accu-Cheks are noted. ASSESSMENT: 1. Acute severe chronic obstructive pulmonary disease exacerbation in a current smoker. 2. Chronic nicotine dependence. Patient is an active cigarette smoker. 3. Right dense hemiplegia from old stroke. 4. Essential hypertension. 5. Hyperlipidemia. 6. Diabetes mellitus, type 2, on oral hypoglycemics. 7. Chronic lymphedema of the right lower extremity with chronic skin changes. 8. Depression not otherwise specified. 9. Morbid obesity with body mass index of 48.7. 10.Acute tracheobronchitis. No pneumonia. 11.Chronic medical debility. 12.Chronic pain, for which patient is on a Duragesic patch. PLAN: Continue current medication and treatment plan. Care was discussed with the patient. MMODL / IJN: [id number] /
[2017-10-26 17:25] LABS: Glucose,Whole Blood 147 mg/dL (75-99)
[2017-10-26] MEDS: ATORVASTATIN 20 MG TAB PO SCH (20:05)
[2017-10-26] MEDS: SERTRALINE 100 MG TAB PO SCH (20:05)
[2017-10-26] MEDS: ASPIRIN 81 MG PO SCH (20:05)
[2017-10-26 21:55] LABS: Glucose,Whole Blood 214 mg/dL (75-99)
[2017-10-27] MEDS: INSULIN ASPART 100 UNIT/ML 1 ML 10 ML VIAL SQ SCH ×3 (07:34→17:11)
[2017-10-27 07:47] LABS: Glucose,Whole Blood 126 mg/dL (75-99)
[2017-10-27] MEDS: FORMOTEROL FUMARATE 20 MCG/2 ML NEBU INHALATION SCH ×2 (08:52→19:30)
[2017-10-27] MEDS: BUDESONIDE 1 MG/2 ML NEBU INHALATION SCH ×2 (08:52→19:29)
[2017-10-27] MEDS: IPRATROPIUM-ALBUTEROL 3 ML NEB INHALATION SCH ×4 (08:52→19:28)
[2017-10-27] MEDS: cefTRIAXone IN SWFI 1,000 MG/10 ML SYRINGE IVP SCH (08:53)
[2017-10-27] MEDS: ENOXAPARIN 40 MG/0.4 ML SYRINGE SQ SCH (08:53)
[2017-10-27] MEDS: methylPREDNISolone SOD SUCCI 40 MG/ML 1 ML VIAL IV SCH (08:54)
[2017-10-27] MEDS: guaiFENesin 600 MG TABLET.ER PO SCH (08:54)
[2017-10-27] MEDS: metFORMIN 500 MG TAB PO SCH (08:54)
[2017-10-27] MEDS: FUROSEMIDE 20 MG TAB PO SCH ×2 (08:54→17:11)
[2017-10-27] MEDS: PREGABALIN 75 MG CAP PO SCH (08:59)
[2017-10-27 09:15] LABS: Basophils % (A) 0 %; Eosinophils % (A) 0 %; HCT 48.3 % (39.0-53.0); Lymphocytes # (A) 0.4 k/uL (1.0-4.8); Lymphocytes % (A) 3 %; MCHC 31.1 g/dL (31.0-37.0); MCV 86.8 fL (80.0-100.0); Mean Platelet Volume 7.2; Monocytes # (A) 0.6 k/uL (0-1.0); Monocytes % (A) 5 %; Neutrophils # (A) 9.9 k/uL (1.3-7.7); Neutrophils % (A) 90 %; Platelet Count 187 k/uL (150-450); RBC 5.56 m/uL (4.30-5.90); RDW 14.9 % (11.5-15.5)
[2017-10-27 09:45] LABS: Anion Gap 9 mmol/L; Blood Urea Nitrogen 35 mg/dL (9-20); Calcium 8.3 mg/dL (8.4-10.2); Carbon Dioxide 34 mmol/L (22-30); Chloride 96 mmol/L (98-107); Glucose 138 mg/dL (74-99); Potassium 4.1 mmol/L (3.5-5.1); Sodium 139 mmol/L (137-145)
--- NOTE | 2017-10-27 11:16 | P.PN ---
Subjective Progress Note Date: 10/27/17 Principal diagnosis: Acute exacerbation of chronic obstructive disease, complicated by acute tracheobronchitisChandu Mckinnon is a 57-year-old white male patient of Dr. Reza, who was brought to the emergency department per EMS on 10/23/2017 at 1507, with complaints of increasing dyspnea, increasing chest congestion, nonproductive cough with the onset of symptoms a week ago. However over the past 3 days his symptoms became progressively worse, and patient was urged to go to the hospital for further evaluation and treatment by his family. Did have a fever several days ago but currently is afebrile. Patient has an underlying history of COPD, he is a current smoker, currently down to 1 pack every 3 days, does not wear oxygen at home, is not on any inhalers. Has never seen a lung specialist for his COPD in the past. 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 Patient is wheelchair bound, lives in an apartment complex, and has a caregiver is a family member help him with medications. Chest x-ray from 10/23/2017 showed diffuse interstitial and peribronchial densities, but no evidence of consolidation or pleural effusion. Follow-up chest x-ray from 10/24/2017 showed no acute process. Influenza screen was negative. Patient has no evidence of leukocytosis, plasma lactic acid was 0.7, troponins were negative 1 , proBNP was non-elevated at 57. Patient was started on a combination of Zithromax, Rocephin, DuoNeb, Pulmicort, IV Solu-Medrol and admitted for further management. On 10/25/2017 patient seen in follow-up on medical surgical floor. Still has the cough, not able to bring up any sputum. Lung sounds are much less rhonchorous on today's exam, still positive for diffuse wheezes. Denies any fever, chills, or chest pain. Remains on 4 L per nasal cannula, and O2 sat at 92-94%. Patient is afebrile. Doppler of the right lower extremity was negative for any evidence of DVT. Continue with current plan of care, with IV steroids, antibiotics, nebulized treatments. Add a flutter valve and incentive spirometry. The patient is seen again today 10/26/2017 in follow-up on the regular medical floor. He is awake and alert in no acute distress. He is doing better today as compared to yesterday. He continues with a loose nonproductive cough. No chills or night sweats. He is maintaining good O2 saturations in the mid 90s on 4 L/m per nasal cannula. His been afebrile. Hemodynamically stable. The culture reveals no growth to date. He is utilizing his incentive spirometer and flutter valve. The patient is seen again today 10/27/2017 in follow-up on the regular medical floor. He is resting quite comfortably in bed. He denies any worsening shortness of breath, cough or congestion. He is improved today as compared to yesterday. Not quite back to his baseline. He is anxious to go home. He is maintaining good O2 saturations in the 90s on 4 L/m per nasal cannula. He remains afebrile. Hemodynamically stable. Blood cultures reveal no growth to date. White count 11.0. Hemoglobin 15.0. Creatinine 0.70. Objective - Vital Signs Vital signs: Vital Signs Temp 97.1 F L 10/27/17 07:00 Pulse 84 10/27/17 09:23 Resp 24 10/27/17 07:00 BP 115/54 10/27/17 07:00 Pulse Ox 94 L 10/27/17 07:00 Intake & Output 10/26/17 10/27/17 10/27/17 18:59 06:59 18:59 Intake Total 480 300 Output Total 1600 Balance -1120 300 Intake: Oral 480 300 Output: Urine 1600 Other: Voiding Method Urinal # Voids 1 2 2 # Bowel Movements 1 - Exam GENERAL EXAM: Alert, 57-year-old obese male, comfortable in no apparent distress. HEAD: Normocephalic/atraumatic. EYES: Normal reaction of pupils, equal size. Conjunctiva pink, sclera white. NOSE: Clear with pink turbinates. THROAT: No erythema or exudates. NECK: No masses, no JVD, no thyroid enlargement, no adenopathy. CHEST: No chest wall deformity. Symmetrical expansion. LUNGS: Equal air entry with end expiratory wheeze. Diminished. CVS: Regular rate and rhythm, normal S1 and S2, no gallops, no murmurs, no rubs ABDOMEN: Soft, nontender, obese. No hepatosplenomegaly, normal bowel sounds, no guarding or rigidity. EXTREMITIES: No clubbing, no edema, no cyanosis, 2+ pulses and upper and lower extremities. Right-sided paralysis with chronic right hand contractures. Right lower extremity lymphedema, venous stasis noted MUSCULOSKELETAL: Muscle strength and tone normal. SPINE: No scoliosis or deformity SKIN: No rashes CENTRAL NERVOUS SYSTEM: Alert and oriented -3. Right-sided flaccid paralysis PSYCHIATRIC: Alert and oriented -3. Appropriate affect. Intact judgment and insight. - Labs CBC & Chem 7: 10/27/17 08:27 10/27/17 08:27 Labs: Abnormal Lab Results - Last 24 Hours (Table) 10/26/17 10/26/17 10/26/17 Range/Units 12:01 17:14 21:49 WBC (3.8-10.6) k/uL Neutrophils # (1.3-7.7) k/uL Lymphocytes # (1.0-4.8) k/uL Chloride (98-107) mmol/L Carbon Dioxide (22-30) mmol/L BUN (9-20) mg/dL Glucose (74-99) mg/dL POC Glucose (mg/dL) 155 H 147 H 214 H (75-99) mg/dL Calcium (8.4-10.2) mg/dL 10/27/17 10/27/17 10/27/17 Range/Units 07:13 08:27 08:27 WBC 11.0 H (3.8-10.6) k/uL Neutrophils # 9.9 H (1.3-7.7) k/uL Lymphocytes # 0.4 L (1.0-4.8) k/uL Chloride 96 L (98-107) mmol/L Carbon Dioxide 34 H (22-30) mmol/L BUN 35 H (9-20) mg/dL Glucose 138 H (74-99) mg/dL POC Glucose (mg/dL) 126 H (75-99) mg/dL Calcium 8.3 L (8.4-10.2) mg/dL Microbiology - Last 24 Hours (Table) 10/23/17 18:50 Blood Culture - Preliminary Blood No Growth after 72 hours Assessment and Plan Assessment: Assessment: #1. Acute exacerbation of COPD, with tracheobronchitis. Chest x-rays showed diffuse interstitial and peribronchial densities, but no evidence of pneumonia #2. Nicotine dependence, ongoing, currently down to 1 pack every 3 days #3. COPD, the severity of which is unknown at this time. Patient is not oxygen dependent on a regular basis #4. Obesity #5. Suspect obstructive sleep apnea, patient has significant crowding of the posterior oropharynx, the Mallampati classification IV #6. History of CVA with right-sided paralysis #7. Diabetes mellitus #8. Hyperlipidemia, hypertension #9. History of heart failure, unspecified #10. Right lower extremity lymphedema, venous stasis, DVT was ruled out by right lower leg Doppler 10/25/2017 #11. Depression #12. Gait dysfunction, due to right-sided paralysis, patient is wheelchair bound Plan: The patient is seen and evaluated by Dr. Davidson. He is improved today as compared to yesterday. The patient is quite adamant about going home today. He is cleared for discharge from the pulmonary standpoint. He will most likely need home oxygen. He would also benefit from a nebulizer for DuoNeb inhalations 4 times a day when necessary. Symbicort 160 2 inhalations twice a day. Complete his course of antibiotics. Complete a prednisone taper. Continue the increased use of the incentive spirometer and flutter valve for cough and deep breathing exercises. He is again encouraged regarding the importance of complete smoking cessation especially if he is using home oxygen. He is informed of the risk of smoking with oxygen. NicoDerm patch has been offered. He is offered an appointment in our office in 1-2 weeks' time. Perhaps at the [facility] with Dr. Soto as the patient lives in [place]. I, the cosigning physician, performed a history & physical examination of the patient. Lungs sounds with faint end expiratory wheeze. Maintaining good O2 saturations in the 90s on 4 L/m per nasal cannula. I discussed the assessment and plan of care with my nurse practitioner, Pamela David. I attest to the above note as dictated by her.
[2017-10-27 12:31] LABS: Glucose,Whole Blood 121 mg/dL (75-99)
[2017-10-27 15:29] VITALS: BP 120/67; PULSE 78; RESP 20; TEMP 96.2
--- NOTE | 2017-10-27 16:16 | DS ---
DISCHARGE SUMMARY DATE OF ADMISSION: 10/24/2017. DATE OF DISCHARGE: 10/27/2017 FINAL DIAGNOSES: 1. Acute severe chronic obstructive pulmonary disease exacerbation in a current smoker from acute tracheobronchitis. 2. No pneumonia. 3. Chronic nicotine dependence. Patient is an active cigarette smoker. 4. Right dense hemiplegia from an old stroke. 5. Essential hypertension. 6. Hyperlipidemia. 7. Diabetes mellitus, type 2, on oral hypoglycemic. 8. Chronic lymphedema of the right lower extremity with chronic skin changes. 9. Depression not otherwise specified. 10.Morbid obesity with body mass index of 48.7. 11.Chronic medical debility. 12.Chronic pain, for which patient is on Duragesic patch. 13.Chronic hypoxic respiratory failure from underlying chronic obstructive pulmonary disease. CONSULTATION: Dr. Davidson. HOSPITAL COURSE: This patient is a smoker who presented with COPD exacerbation and acute tracheobronchitis; not felt to have any pneumonia. Dopplers were negative for DVT. Patient was counseled extensively about cessation of smoking. On exam, mild wheezing. Some slight expiratory crackles. Patient is doing rather well; very keen to go home. Patient's pulse ox was down to 86% on room air; will be requiring 2 L of oxygen. DISCHARGE MEDICATIONS: 1. Aspirin 81 mg at bedtime. 2. Lasix 40 mg daily. 3. Lyrica 150 mg p.o. b.i.d. 4. Zoloft 100 mg at bedtime. 5. Zocor 40 mg at bedtime. 6. Duragesic 100 mcg patch every 48 hours. 7. Glucophage 500 mg p.o. b.i.d. 8. DuoNeb q.i.d. 9. Naproxen 500 mg b.i.d. p.r.n. 10.Mucinex 1200 mg p.o. q.12. 11.Prednisone taper. 12.Home oxygen at 2 L. DISPOSITION: Home. FOLLOWUP: Follow up with Dr. Reza in 3 days. Follow up with Pulmonary. MMODL / IJN: [id number] /
[2017-10-27 17:23] LABS: Glucose,Whole Blood 129 mg/dL (75-99)
[2017-10-28] MEDS ORDERED: predniSONE 20 MG TAB PO SCH (09:00)
== END 2017-10-27 19:46 | disposition home or self-care (01) | DRG 191 ==
LOC: EC 15:07 → 4MS4W 17:46 → OBSVTOIN 10-24 14:27
PROVIDERS: ADMIT Hospitalist; ATTEND Hospitalist
DX: J44.0 Chronic obstructive pulmonary disease with (acute) lower respiratory infection (principal); I69.351 Hemiplegia and hemiparesis following cerebral infarction affecting right dominant side; J96.11 Chronic respiratory failure with hypoxia; I11.0 Hypertensive heart disease with heart failure; E66.01 Morbid (severe) obesity due to excess calories; I50.9 Heart failure, unspecified; Z68.42 Body mass index [BMI] 45.0-49.9, adult; F17.210 Nicotine dependence, cigarettes, uncomplicated; J20.9 Acute bronchitis, unspecified; J44.1 Chronic obstructive pulmonary disease with (acute) exacerbation; I69.311 Memory deficit following cerebral infarction; R40.2362 Coma scale, best motor response, obeys commands, at arrival to emergency department; R40.2142 Coma scale, eyes open, spontaneous, at arrival to emergency department; G47.33 Obstructive sleep apnea (adult) (pediatric); I89.0 Lymphedema, not elsewhere classified; F32.9 Major depressive disorder, single episode, unspecified; E11.9 Type 2 diabetes mellitus without complications; I87.8 Other specified disorders of veins; R40.2252 Coma scale, best verbal response, oriented, at arrival to emergency department; E78.5 Hyperlipidemia, unspecified; G89.29 Other chronic pain; M54.5 Low back pain; R26.9 Unspecified abnormalities of gait and mobility; Z79.82 Long term (current) use of aspirin; Z79.84 Long term (current) use of oral hypoglycemic drugs; Z79.891 Long term (current) use of opiate analgesic; Z79.899 Other long term (current) drug therapy; Z99.3 Dependence on wheelchair; Z82.5 Family history of asthma and other chronic lower respiratory diseases
CPT/HCPCS: 36415; 71045; 71046; 80048; 80053; 82550; 82553; 83605; 83880; 84484; 85025; 85610; 85730; 87040; 87502; 93005; 94640; 94667; 94760; 96365; 96375; 99285